=== PATIENT | male | born 1960 | race Caucasian/White ===

== ENCOUNTER 2018-08-30 08:38 | Emergency (ER) | payer BC, OTHER ==
[2018-08-30 08:54] VITALS: BP 139/81; PULSE 58; TEMP 98.1; BMI 35.7
[2018-08-30] MEDS ORDERED: COLCHICINE 0.6 MG TABLET (FP) PO ONE (09:09)
[2018-08-30] MEDS ORDERED: DEXAMETHASONE SOD PHOSPHATE 10 MG/1 ML VIAL IM ONE (09:13)
[2018-08-30] MEDS ORDERED: DEXAMETHASONE SOD PHOSPHATE 10 MG/1 ML VIAL ONE (09:20)
--- NOTE | 2018-08-30 09:20 | PDOC ---
History of Present Illness - General Chief Complaint: Pain, Acute Stated Complaint: PATIENT HERE FOR RT. KNEE PAIN X 1 DAY Time Seen by Provider: 08/30/18 08:58 History Source: Patient Exam Limitations: Clinical Condition - History of Present Illness Initial Comments: 08/30/18 09:15 Patient with history of hypertension, diabetes and gout present with complaint of sudden onset of right knee pain which has been worsening since yesterday. Patient reported he was laying down in the bed yesterday and started having throbbing right knee pain which was mild but has gotten worse. Patient denies any trauma or injury to knee. He hasn't been taking his gout medication for a long time because pharmacy stopped sending medication to his house. Denies fever , chills, calf pain, radiation of pain, numbness or tingling sensation. Denies any other symptoms Timing/Duration: 24 hours Past History - Past Medical History Allergies/Adverse Reactions: Allergies Allergy/AdvReac Type Severity Reaction Status Date / Time Pork/Porcine Containing Allergy Vomiting Verified 08/30/18 09:11 Products Home Medications: Ambulatory Orders Atorvastatin Ca [Lipitor] 10 mg PO HS #30 tablet 07/26/15 Lisinopril [Prinivil] 40 mg PO DAILY #30 tablet 07/26/15 [place]-3 Acid Ethyl Esters [Lovaza -] 1 gm PO BID #30 cap 07/26/15 Insulin (Levemir) [Levemir Vial] 20 units SQ ACHS 11/20/15 Oxycodone HCl/Acetaminophen [Percocet 5-325 mg Tablet] 1 - 2 tab PO Q6H PRN #10 tab MDD 8 11/20/15 Cephalexin Monohydrate [Keflex -] 500 mg PO BID 7 Days #14 capsule 08/30/18 Colchicine 0.6 mg PO DAILY #30 capsule 08/30/18 CVA: Yes (brain aneurysm, mild R residual) COPD: No Diabetes: Yes HTN: Yes - Surgical History Appendectomy: Yes Neurologic Surgery: Yes (vp of customer experience strategy shunt body rejected, coil in brain) - Immunization History Immunization Up to Date: Yes - Suicide/Smoking/Psychosocial Hx Smoking Status: No Smoking History: Never smoked Have you smoked in the past 12 months: Yes Number of Cigarettes Smoked Daily: 0 Hx Alcohol Use: No Drug/Substance Use Hx: No Substance Use Type: None Review of Systems - Review of Systems Able to Perform ROS?: Yes Is the patient limited Thai proficient: No Constitutional: No: Chills, Fever, Malaise HEENTM: No: Symptoms Reported Respiratory: No: Symptoms reported Cardiac (ROS): No: Symptoms Reported ABD/GI: No: Nausea, Vomiting : No: Symptoms Reported Musculoskeletal: Yes: See HPI, Joint Pain (right knee), Joint Swelling (right knee), Muscle Pain (anterior right knee pain). No: Muscle Weakness Integumentary: Yes: Erythema (anterior right knee) Neurological: No: Numbness, Paresthesia, Tingling All Other Systems: Reviewed and Negative *Physical Exam - Vital Signs Last Vital Signs Temp Pulse Resp BP Pulse Ox 98.1 F 58 L 18 139/81 98 08/30/18 08:50 08/30/18 08:50 08/30/18 08:50 08/30/18 08:50 08/30/18 08:50 - Physical Exam Comments: 08/30/18 09:21 GENERAL: Well developed, well nourished. Awake and alert. No acute distress. CARDIOVASCULAR: Regular rate and rhythm. No murmurs, rubs, or gallops. PULMONARY: No evidence of respiratory distress. MUSCULOSKELETAL : Moderate tenderness to anterior patella of right knee with mild swelling and erythema to anterior patella of right knee. No tenderness to medial, lateral or posterior right knee. Negative anterior-posterior drawer tests of right knee. No increased warmth to right knee. FROM of right knee with flexion and extension. no restricted knee movement. No bony deformities SKIN: Warm and dry. Normal capillary refill. Mild localized increased erythema to skin of anterior patella NEUROLOGICAL: Alert, awake, appropriate. No motor deficits in the lower extremities. Gait is normal without ataxia. PSYCHIATRIC: Cooperative. Good eye contact. Appropriate mood and affect. General Appearance: Yes: Nourished, Appropriately Dressed, Mild Distress ED Treatment Course - LABORATORY CBC & Chemistry Diagram: 08/30/18 09:17 - RADIOLOGY Radiology Studies Ordered: Category Date Time Status KNEE 3 POS-RIGHT [RAD] Stat Radiology 08/30/18 09:10 Ordered Medical Decision Making - Medical Decision Making 08/30/18 09:17 Patient with history of hypertension, diabetes and gout present with complaint of sudden onset of right knee pain which has been worsening since yesterday. Patient reported he was laying down in the bed yesterday and started having throbbing right knee pain which was mild but has gotten worse. Patient denies any trauma or injury to knee. He hasn't been taking his gout medication for a long time because pharmacy stopped sending medication to his house. Denies fever , chills, calf pain, radiation of pain, numbness or tingling sensation. Denies any other symptoms. Exam significant for moderate tenderness to anterior patella of right knee ordered erythema to skin of right knee. No tenderness to medial, lateral or posterior knee. No open wound or increased warmth to site. FROM of right knee with flexion and extension. no restricted knee movement Symptoms likely gout arthritis versus less likely infective right knee joints. CBC, uric acid and ESR lab ordered. X-ray of right knee ordered. Colchicine 1.2 mg by mouth and Decadron 10 mg IM given for knee pain and possible gout. Treat based on lab and imaging results 08/30/18 09:54 x-ray of right knee shows moderate arthritis changes. no joint effusion of x- ray. no acute process seen on x-ray. Uric acid level elevated c/w gout. CBC and ESR still pending 08/30/18 11:32 ESR elevated. CBC unremarkable. Patient stable for outpatient management on gout arthritis with orthopedics follow-up *DC/Admit/Observation/Transfer Diagnosis at time of Disposition: Gout, arthritis, Right anterior knee pain - Discharge Dispostion Disposition: HOME Condition at time of disposition: Stable Decision to Admit order: No - Prescriptions Prescriptions: Cephalexin Monohydrate [Keflex -] 500 mg PO BID 7 Days #14 capsule Colchicine 0.6 mg PO DAILY #30 capsule - Referrals Referrals: Bobby Lakhani MD [Primary Care Provider] - - Patient Instructions Printed Discharge Instructions: DI for Gout, Higher Vitamin C Intake Associated With Lower Risk of Gout Additional Instructions: Take prescribed medications daily as prescribed. Your x-rays shows arthritis in right knee. Follow-up with referred orthopedics - Post Discharge Activity Forms/Work/School Notes: Back to Work
[2018-08-30] MEDS ORDERED: COLCHICINE 0.6 MG TABLET (FP) ONE (09:21)
[2018-08-30 11:26] LABS: BASO % 0.8 % (0-2.0); EOS % 2.7 % (0-4.5); HEMATOCRIT 39.8 % (35.4-49); HEMOGLOBIN 13.9 GM/dL (11.7-16.9); LYMPH % 20.5 % (8-40); MEAN CELL VOLUME 88.5 fl (80-96); MEAN PLT VOLUME 8.8 fl (7.5-11.1); MONO % 6.9 % (3.8-10.2); NEUT % 69.1 % (42.8-82.8); PLATELET COUNT 204 K/MM3 (134-434); RDW 13.7 % (11.9-15.9); WHITE BLOOD COUNT 6.7 K/mm3 (4.0-10.0)
== END 2018-08-30 12:04 | disposition home or self-care (01) ==
LOC: JERFT 08:38
PROC: 3E0233Z Introduction of Anti-inflammatory into Muscle, Percutaneous Approach (ICD-10-PCS; principal; 2018-08-30)
DX: M10.9 Gout, unspecified (principal); M13.861 Other specified arthritis, right knee; I10 Essential (primary) hypertension; E11.9 Type 2 diabetes mellitus without complications; Z79.4 Long term (current) use of insulin
CPT/HCPCS: 36415; 73562-TC-RT-FY; 84550; 85025; 85651; 99281-25; J1100

== ENCOUNTER 2019-06-15 16:46 | Inpatient (IN) | payer BC, OTHER ==
[2019-06-15] MEDS ORDERED: ACETAMINOPHEN 500 MG TABLET (FP) PO ONE (17:22)
[2019-06-15] MEDS ORDERED: SODIUM CHLORIDE 0.9% 500 ML INFUS.BAG IV ONE (17:23)
--- NOTE | 2019-06-15 17:24 | PDOC ---
Rapid Medical Evaluation Time Seen by Provider: 06/15/19 17:17 Medical Evaluation: Allergies Allergy/AdvReac Type Severity Reaction Status Date / Time Pork/Porcine Containing Allergy Vomiting Verified 12/09/18 10:44 Products 06/15/19 17:18 CC: Bodyaches, cough Pt is a 58 y/o male who presents to the ED with complaint of bodyaches and cough for 2 days. Pt is complaining of having no energy, no appetite, + nausea. Has DM, CKI, h/o CVA, HTN. Brief exam: Generally ill appearing, non-toxic, no respiratory distress Orders: Tylenol, cxr, saline lock, fluids, labs To ED for further evaluation Discharge Disposition - Diagnosis Fever - Referrals - Patient Instructions - Post Discharge Activity
--- NOTE | 2019-06-15 17:40 | PDOC ---
History of Present Illness - General Chief Complaint: Blood Pressure Problem Stated Complaint: COLD SYMPTOMS Time Seen by Provider: 06/15/19 17:17 History Source: Patient Exam Limitations: No Limitations - History of Present Illness Initial Comments: 06/15/19 17:39 58yM w PMHx uncontrolled T2DM, CKD, CVA (R sided weakness), HTN presenting w 2d non productive cough, rich headache, body aches, nasal congestion, fevers, generalized weakness. Took cough meds without relief. Took all of his BP meds today. Does not take any of his prescribed DM meds d/t high cost. Denies vision changes, vomiting, chest pain, SOB, urinary/bowel mvmt changes. Past History - Past Medical History Allergies/Adverse Reactions: Allergies Allergy/AdvReac Type Severity Reaction Status Date / Time Pork/Porcine Containing Allergy Vomiting Verified 06/15/19 17:18 Products Home Medications: Ambulatory Orders Clonidine HCl 0.1 mg PO BID 06/15/19 Insulin Detemir [Levemir Flextouch] 10 unit SQ BID 06/15/19 Oseltamivir Phosphate [Tamiflu -] 75 mg PO BID #10 capsule 06/15/19 CVA: Yes (brain aneurysm, mild R residual) COPD: No Diabetes: Yes HTN: Yes - Surgical History Appendectomy: Yes Neurologic Surgery: Yes (hat brusher machine shunt body rejected, coil in brain) - Immunization History Immunization Up to Date: Yes - Psycho Social/Smoking Cessation Hx Smoking Status: No Smoking History: Unknown if ever smoked Have you smoked in the past 12 months: Yes Number of Cigarettes Smoked Daily: 0 Hx Alcohol Use: No Drug/Substance Use Hx: No Substance Use Type: None Review of Systems - Review of Systems Constitutional: Yes: Fever. No: Chills HEENTM: Yes: Nose Congestion. No: Blurred Vision, Recent change in vision, Nose Pain, Mouth Pain Respiratory: Yes: Cough. No: Shortness of Breath Cardiac (ROS): No: Chest Pain, Palpitations, Syncope ABD/GI: Yes: Nausea. No: Abdominal Distended, Constipated, Diarrhea, Vomiting : No: Burning, Dysuria, Hematuria Musculoskeletal: No: Back Pain, Joint Pain Integumentary: No: Bruising, Flushing Neurological: Yes: Headache. No: Seizure, Tingling Psychiatric: No: Anxiety, Depression, Stressors Endocrine: No: Excessive Sweating, Flushing, Intolerance to Cold, Intolerance to Heat Hematologic/Lymphatic: No: Anemia, Blood Clots *Physical Exam - Vital Signs Last Vital Signs Temp Pulse Resp BP Pulse Ox 100.4 F H 116 H 22 H 203/124 H 99 06/15/19 17:21 06/15/19 17:21 06/15/19 17:21 06/15/19 17:21 06/15/19 17:21 - Physical Exam General Appearance: Yes: Nourished, Appropriately Dressed, Mild Distress HEENT: positive: EOMI, ROB, Normal Voice, Hearing Grossly Normal. negative: Scleral Icterus (R), Scleral Icterus (L) Respiratory/Chest: positive: Lungs Clear, Normal Breath Sounds, Rapid RR. negative: Chest Tender, Respiratory Distress, Crackles, Rales, Rhonchi, Stridor , Wheezing Cardiovascular: positive: Regular Rhythm, S1, S2, Tachycardia. negative: Edema , Murmur Extremity: positive: Normal Capillary Refill. negative: Pedal Edema Integumentary: positive: Normal Color, Warm Neurologic: positive: supervisor laboratory II-XII NML intact, Fully Oriented, Alert, Normal Mood/ Affect, Normal Response, Motor Strength 5/5, Respond to painful stimul, Responsive. negative: Sensory Deficit, Confused, Disoriented ED Treatment Course - LABORATORY CBC & Chemistry Diagram: 06/15/19 17:32 06/15/19 17:32 Medical Decision Making - Medical Decision Making 06/15/19 18:[address] --- 58yM w PMHx uncontrolled T2DM, CKD, CVA (R sided weakness), HTN presenting w 2d non productive cough, rich headache, body aches, nasal congestion, fevers, generalized weakness d/t influenza B. Low concern for PNA (clear lung sounds) vs DKA (BG 106) vs intracranial bleed vs ACS (no chest pain/SOB) Has hypokalemia K 3.0 Given tylenol, zofran, 40 KCl, 0.5L NS, tamiflu Anticipate DC home w tamiflu prescription - pending head CT, CXR, UA Signed off to night team Discharge - Discharge Information Problems reviewed: Yes Clinical Impression/Diagnosis: Influenza B Condition: Improved Disposition: HOME - Additional Discharge Information Prescriptions: Oseltamivir Phosphate [Tamiflu -] 75 mg PO BID #10 capsule - Follow up/Referral Referrals: Bobby Lakhani MD [Primary Care Provider] - - Patient Discharge Instructions Patient Printed Discharge Instructions: DI for Influenza -- Adult Additional Instructions: You have the flu Take the prescribed Tamiflu as directed. Drink lots of water. Take tylenol if you have fever Come back to the ED if you are vomiting, chest pain, trouble breathing. - Post Discharge Activity
[2019-06-15 17:51] LABS: BASO % 0.7 % (0-2.0); EOS % 0.1 % (0-4.5); HEMOGLOBIN 14.8 GM/dL (11.7-16.9); LYMPH % 10.2 % (8-40); MCH 29.1 pg (25.7-33.7); MCHC 34.4 g/dl (32.0-35.9); MEAN CELL VOLUME 84.5 fl (80-96); MEAN PLT VOLUME 8.5 fl (7.5-11.1); MONO % 11.9 % (3.8-10.2); NEUT % 77.1 % (42.8-82.8); PLATELET COUNT 213 K/MM3 (134-434); RBC 5.09 M/mm3 (4.00-5.60); RDW 14.8 % (11.9-15.9); WHITE BLOOD COUNT 7.4 K/mm3 (4.0-10.0)
[2019-06-15] MEDS ORDERED: ONDANSETRON 4 MG/2 ML VIAL IVPUSH ONE (18:02)
[2019-06-15 18:12] LABS: ALBUMIN 2.5 g/dl (3.4-5.0); BILIRUBIN,TOTAL 0.8 mg/dL (0.2-1); CALCIUM 8.1 mg/dL (8.5-10.1)
[2019-06-15] MEDS ORDERED: POTASSIUM CHLORIDE ORAL LIQUID 20 MEQ/15 ML PO ONE (18:23)
[2019-06-15] MEDS ORDERED: FAMOTIDINE 20 MG/50 ML IVPB 20 MG/50 ML MG IVPB ONE ×2 (18:41→19:37)
[2019-06-15] MEDS ORDERED: OSELTAMIVIR PHOSPHATE 75 MG CAPSULE PO ONE (18:57)
--- NOTE | 2019-06-15 19:07 | PDOC ---
Documentation entered by Waldemar Banda SCRIBE, acting as scribe for Kristel Chawla DO. Kristel Chawla DO: This documentation has been prepared by the Solo mccoy Daniel, SCRIBE, under my direction and personally reviewed by me in its entirety. I confirm that the documentation accurately reflects all work, treatment, procedures, and medical decision making performed by me. Attending Attestation - Resident Resident Name: Arturo Jackson - ED Attending Attestation I have performed the following: I have examined & evaluated the patient, The case was reviewed & discussed with the resident, I agree w/resident's findings & plan, Exceptions are as noted - HPI HPI: 06/15/19 18:10 The patient is a 58 year old male with a past medical history of diabetes, stroke (right sided weakness), and HTN here today for evaluation of cough and body aches. The patient reports that he has had 2 days of non productive cough, nasal congestion, general weakness, body aches, nausea, and subjective fevers. He reports that he took some cough medication with minimal relief. Patient denies lightheadedness. Denies chills. Denies chest pain, shortness of breath. Denies vomiting, diarrhea, abdominal pain. Allergies: pork PCP: Bobby Lakhani - Physicial Exam PE: 06/15/19 18:10 Constitutional: +morbidly obese. +warm to touch. Awake, alert, oriented. No acute distress. Head: Normocephalic. Atraumatic Eyes: PERRL. EOMI. Conjunctivae are not pale. ENT: +clear discharge from nares. Mucous membranes are moist and intact. Posterior pharynx without exudates or erythema. Uvula midline. Neck: Supple. Full ROM. No lymphadenopathy. Cardiovascular: +tachycardic. Regular rhythm. S1, S2 regular. Distal pulses are 2+ and symmetric. Pulmonary/Chest: +mildly tachypneic. No evidence of respiratory distress. Clear to auscultation bilaterally No wheezing, rales or rhonchi. Abdominal: +epigastric tenderness. Soft and non-distended. No rebound, guarding or rigidity. No organomegaly. No palpable masses. Good bowel sounds. Back: No CVA tenderness. Musculoskeletal: No edema. No cyanosis. No clubbing. Full range of motion in all extremities. No calf tenderness. Radial/pedal pulses are intact and 2+ bilaterally Skin: Skin is warm and dry. No petechiae. No purpura. Neurological: Alert and oriented to person, place, and time. Cranial nerves II -XII are grossly intact. Normal speech. Strength is grossly symmetric. No sensory deficits. Psychiatric: Good eye contact. Normal interaction, affect and behavior. - Medical Decision Making 06/15/19 19:04 a/p: 58yo male with hx of dm and htn noncomplaint with meds due to cost with elevated bp, tachy, fevers, and body aches x 2 days -pt states noncomplaint due to cost -only taking 4 of his 12 meds -pt denies cp -has been coughing, rhinorrhea, sore throat -pt did not get the flu vaccine today -will send labs, ekg, cxr, flu, trop -will monitor and reassess 06/15/19 19:05 pt is flu b+ trop 0.09 pt with elevated bp and trop spill, concerning for hypertensive emergency pt also with elie on ckd 06/15/19 19:[address] without acute findings pt agreeable to stay for further eval 06/15/19 19:27 cxr clear, cardiomegaly 06/15/19 20:01 pt will need to be admitted abnl ekg elevated trop elie on ckd end organ damage protein in the urine 06/15/19 20:32 resident discussed the case with the pmd who accepts pt to service Heart Score/ECG Review - ECG Intrepretation Comment:: 06/15/19 20:00 sinus at 94, nl axis, nl interval, q waves septally which are age indeterminate , q waves III and avf, abnl ekg
--- NOTE | 2019-06-15 19:08 | PDOC ---
*Physical Exam - Vital Signs Last Vital Signs Temp Pulse Resp BP Pulse Ox 100.4 F H 116 H 22 H 203/124 H 99 06/15/19 17:21 06/15/19 17:21 06/15/19 17:21 06/15/19 17:21 06/15/19 17:21 - Physical Exam General Appearance: Yes: Nourished, Mild Distress ED Treatment Course - LABORATORY CBC & Chemistry Diagram: 06/15/19 17:32 06/15/19 17:32 - ADDITIONAL ORDERS Additional order review: Laboratory Results 06/15/19 06/15/19 17:59 17:32 Sodium 143 Potassium 3.0 L Chloride 111 H Carbon Dioxide 24 Anion Gap 8 BUN 22.0 H Creatinine 3.0 H Est GFR (CKD-EPI)AfAm 25.72 Est GFR (CKD-EPI)NonAf 22.19 POC Glucometer 106 Random Glucose 93 Calcium 8.1 L Total Bilirubin 0.8 AST 44 H ALT 31 Alkaline Phosphatase 119 H Troponin I 0.09 H Total Protein 6.0 L Albumin 2.5 L 06/15/19 06/15/19 17:59 17:32 RBC 5.09 MCV 84.5 MCHC 34.4 RDW 14.8 D MPV 8.5 Neutrophils % 77.1 Lymphocytes % 10.2 D Monocytes % 11.9 H Eosinophils % 0.1 D Basophils % 0.7 POC Glucometer 106 - Medications Given in the ED: ED Medications Discontinued Medications Generic Name Dose Route Start Last Admin Trade Name Freq PRN Reason Stop Dose Admin Acetaminophen 1,000 mg 06/15/19 17:22 06/15/19 18:24 Tylenol - PO 06/15/19 17:23 1,000 mg ONCE ONE Administration Sodium Chloride 500 ml 06/15/19 17:23 06/15/19 18:24 Normal Saline - IV 06/15/19 17:24 500 ml ONCE ONE Administration Medical Decision Making - Medical Decision Making 06/15/19 19:05 Signed out to me by Dr. Jackson. 58M with PMH DM, CKD, CVA, HTN presenting with flu-like symptoms including myalgia, weakness, fever. VS notable for fever to 100.4F, tachy to 116, BP to 203/124, RR 22. Labs notable for: - flu B+, starting on Tamiflu - K 3.0, will replete - Cr 3.0, up from 2.7, acute on chronic kidney injury - trop 0.09, concerning for hypertensive emergency - Albumin 2.5 - Ca 8.1, corrected 9.3 - UA 4+ protein, 3+ blood ECG notable for NSR with HR 94, QRS 84, QTc 447, mild TWI in III, no other significant ischemic changes 06/15/19 20:21 Discussed case with constanza Cedeno for tele admit to her service, requests consults to Nikole Rios, and Michaela and trop trend. Discharge - Discharge Information Problems reviewed: Yes Clinical Impression/Diagnosis: Influenza B, Hypertensive emergency Condition: Improved Disposition: HOME - Admission Yes - Additional Discharge Information - Follow up/Referral - Patient Discharge Instructions - Post Discharge Activity
[2019-06-15] MEDS ORDERED: OSELTAMIVIR PHOSPHATE 75 MG CAPSULE ONE (19:36)
[2019-06-15] MEDS ORDERED: POTASSIUM CHLORIDE ORAL LIQUID 20 MEQ/15 ML ONE (19:37)
[2019-06-15] MEDS ORDERED: ONDANSETRON 4 MG/2 ML VIAL ONE (19:37)
[2019-06-15 19:50] LABS: EPI CELLS 3.3 /HPF (0-5/HPF); HYALINE CASTS 9 /lpf (0-8); PH,URINE 6.5 (5.0-8.0); URINE APPEARANCE CLEAR; URINE BILIRUBIN NEGATIVE (NEGATIVE); URINE COLOR YELLOW; URINE GLUCOSE (UA) TRACE (NEGATIVE); URINE KETONE NEGATIVE (NEGATIVE); URINE LEUK ESTERASE NEGATIVE (NEGATIVE); URINE NITRITE NEGATIVE (NEGATIVE); URINE PROTEIN 4+ (NEGATIVE); URINE RBC 3 /hpf (0-4); URINE WBC 1 /hpf (0-5)
[2019-06-15 19:57] LABS: COCAINE, UR NEGATIVE ng/ml (CUTOFF=300); METHADONE, UR NEGATIVE ng/ml (CUTOFF=300); OPIATES, URI NEGATIVE ng/ml (CUTOFF=300); PHENCYCLIDINE,URINE NEGATIVE ng/ml (CUTOFF=25); URINE AMPHETAMINES NEGATIVE ng/ml (CUTOFF=500); URINE BARBITURATES NEGATIVE ng/ml (CUTOFF=200); URINE BENZODIAZEPINES NEGATIVE ng/ml (CUTOFF=200)
[2019-06-16] MEDS ORDERED: cloNIDine HCL 0.1 MG TABLET ONE (09:12)
[2019-06-16 09:19] LABS: BASO % 0.6 % (0-2.0); HEMATOCRIT 41.1 % (35.4-49); HEMOGLOBIN 14.2 GM/dL (11.7-16.9); LYMPH % 14.6 % (8-40); MCH 29.3 pg (25.7-33.7); MCHC 34.6 g/dl (32.0-35.9); MEAN CELL VOLUME 84.5 fl (80-96); MEAN PLT VOLUME 7.9 fl (7.5-11.1); MONO % 13.6 % (3.8-10.2); NEUT % 70.2 % (42.8-82.8); PLATELET COUNT 194 K/MM3 (134-434); RBC 4.86 M/mm3 (4.00-5.60); RDW 14.9 % (11.9-15.9); WHITE BLOOD COUNT 5.5 K/mm3 (4.0-10.0)
--- NOTE | 2019-06-16 09:35 | CON.CARD ---
Consult Consult Specialty:: Cardiology Referred by:: Bobby Nunes MD Reason for Consultation:: Demand ischemia - History of Present Illness Chief Complaint: Flu History of Present Illness: 58 yo male with a hx of HTN, hyperlipidemia, DM -> on insulin, CVA from a ruptured aneurysm post with shunt placement consequent infection requiring replacement, eventual coiling of the aneurysm, residual left-sided weakness, CKD , here with body aches, non productive cough, nasal congestion, general weakness , nausea, and subjective fevers. He reports that he took some cough medication with minimal relief, found with influenza B, also BP has been high. He denies CP , SOB, palpitations, dizziness, true syncope, orthopnea, PND or LE edema. He doesn't exercise at baseline because of weakness. 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 ELEMENT [employer]KER: Yes: Other (s/p rutptured brain anuerysm with residual left sided weakness) Cardio/Vascular: Yes: HTN, Hyperlipdemia Renal/: Yes: Renal Inusuff Endocrine: Yes: Diabetes Mellitus (on insulin) - Past Surgical History Past Surgical History: Yes: Appendectomy - Alcohol/Substance Use Hx Alcohol Use: No History of Substance Use: reports: None - Smoking History Smoking history: Unknown if ever smoked Have you smoked in the past 12 months: Yes Aproximately how many cigarettes per day: 0 - Social History Usual Living Arrangement: Other (4 children, grown) Home Medications - Allergies Allergies/Adverse Reactions: Allergies Allergy/AdvReac Type Severity Reaction Status Date / Time Pork/Porcine Containing Allergy Vomiting Verified 06/15/19 17:18 Products - Home Medications Home Medications: Ambulatory Orders Clonidine HCl 0.1 mg PO BID 06/15/19 Insulin Detemir [Levemir Flextouch] 10 unit SQ BID 06/15/19 Oseltamivir Phosphate [Tamiflu -] 75 mg PO BID #10 capsule 06/15/19 Review of Systems - Review of Systems Constitutional: reports: Fever, Malaise Musculoskeletal: reports: Muscle Pain Vital Signs: Vital Signs Temperature 99 F 06/16/19 08:30 Pulse Rate 94 H 06/16/19 08:30 Respiratory Rate 20 06/16/19 08:30 Blood Pressure 176/108 H 06/16/19 08:30 O2 Sat by Pulse Oximetry (%) 98 06/16/19 08:30 Constitutional: Yes: No Distress, Calm Neck: Yes: Supple Respiratory: Yes: Regular, CTA Bilaterally Gastrointestinal: Yes: Normal Bowel Sounds, Soft Cardiovascular: Yes: Regular Rate and Rhythm JVD: No Carotid Bruit: No Heart Sounds: Yes: S1, S2 Murmur: Yes: Systolic Murmur, Grade 1 Edema: No Neurological: Yes: Pre-Existing Deficit - Other Data Labs, Other Data: CBC, BMP 06/16/19 09:11 Troponin, BNP 06/15/19 06/15/19 06/16/19 17:32 21:07 00:26 Troponin I 0.09 H 0.12 H 0.11 H Troponin, BNP 06/15/19 06/15/19 06/16/19 17:32 21:07 00:26 Troponin I 0.09 H 0.12 H 0.11 H Imaging - Results Chest X-ray: Report Reviewed (NAD) Cat Scan: Report Reviewed (HCT: No acute events) Problem List - Problems (1) Demand ischemia Code(s): I24.8 - OTHER FORMS OF ACUTE ISCHEMIC HEART DISEASE (2) Fever Code(s): R50.9 - FEVER, UNSPECIFIED Qualifiers: Fever type: unspecified Qualified Code(s): R50.9 - Fever, unspecified (3) Hypertensive emergency Code(s): I16.1 - HYPERTENSIVE EMERGENCY (4) Influenza B Code(s): J10.1 - FLU DUE TO OTH IDENT INFLUENZA VIRUS W OTH RESP MANIFEST (5) CVA (cerebrovascular accident due to intracerebral hemorrhage) Code(s): I61.9 - NONTRAUMATIC INTRACEREBRAL HEMORRHAGE, UNSPECIFIED (6) Diabetes Code(s): E11.9 - TYPE 2 DIABETES MELLITUS WITHOUT COMPLICATIONS Qualifiers: Diabetes mellitus type: type 2 Diabetes mellitus prison insulin use: with prison use Diabetes mellitus complication status: with kidney complications Diabetes mellitus complication detail: with nephropathy Qualified Code(s): E11.21 - Type 2 diabetes mellitus with diabetic nephropathy; Z79.4 - MCC (current) use of insulin (7) Hyperlipemia Code(s): E78.5 - HYPERLIPIDEMIA, UNSPECIFIED Qualifiers: Hyperlipidemia type: pure hypercholesterolemia Qualified Code(s): E78.00 - Pure hypercholesterolemia, unspecified; E78.0 - Pure hypercholesterolemia Assessment/Plan 07/31/2015 Normal biventricular size and fxn, tr TR 1. Influenza B 2. Acute on CKD with proteinuria 3. Hypertensive urgency 4. Demand ischemia 5. Medication noncompliance 6. Cerebral aneurysm post stroke, coiling 7. Hyperlipidemia 8. Type 2 DM P:1. Troponins are downtrending, replete K as you are, monitor renal function 2. F/u echocardiogram to reassess LV and valvular function 3. Resume carvedilol 6.25 bid, lisinopril held pending renal fxn stabilization, resume Lipitor 10 qd 4. Emphasize importance of medication and diet compliance 5. Course of Tamiflu 6. Thank you for consultative opportunity
[2019-06-16 09:49] LABS: ALBUMIN 2.4 g/dl (3.4-5.0); BILIRUBIN,TOTAL 0.8 mg/dL (0.2-1); BLOOD UREA NITROGEN 19.1 mg/dL (7-18); CALCIUM 7.9 mg/dL (8.5-10.1); CREATININE 2.8 mg/dL (0.55-1.3); POTASSIUM 3.1 mmol/L (3.5-5.1); TOT PROT 5.7 g/dl (6.4-8.2)
[2019-06-16] MEDS ORDERED: INSULIN (LEVEMIR) 100 UNITS/ML UNITS SQ SCH (10:00)
[2019-06-16] MEDS ORDERED: cloNIDine HCL 0.1 MG TABLET PO SCH ×2 (10:00→14:00)
[2019-06-16] MEDS ORDERED: CARVEDILOL 3.125 MG TABLET (FP) ONE ×2 (10:32→11:20)
[2019-06-16] MEDS: CARVEDILOL 6.25 MG TABLET (FP) PO SCH ×2 (11:00→22:54)
--- NOTE | 2019-06-16 13:36 | CONSULT ---
Consult - text type - Consultation Consultation Note: Renal consult for CKD This is a 58 year old gentleman with history of CKD stage 4 (baseline Cr ~2.6), hemorrhagic CVA, hypertension, insulin dependent DM who presents from home with complaints of body aches, fevers, and generalized weakness and found to have Cr of 3 on presentation with elevated blood pressures. Pt reports that he could not sleep for the last 3 days because of cough. Denies any chest pain or shortness of breath. No N/V/D but has had anorexia. No flank pain, dysuria, frequency. Making urine. He does report headache. PMhx: as above Allergies: Prok/Porcine Family Hx: NC Social Hx: No T/A/D ROS: as per HPI, all other pertinent ros negative Home Medications Medication Instructions Recorded Clonidine HCl 0.1 mg PO BID 06/15/19 Insulin Detemir [Levemir Flextouch] 10 unit SQ BID 06/15/19 Oseltamivir Phosphate [Tamiflu -] 75 mg PO BID #10 capsule 06/15/19 Vital Signs Temperature 99 F 06/16/19 08:30 Pulse Rate 94 H 06/16/19 08:30 Respiratory Rate 20 06/16/19 08:30 Blood Pressure 176/108 H 06/16/19 08:30 O2 Sat by Pulse Oximetry (%) 98 06/16/19 08:30 Intake & Output 06/13/19 06/14/19 06/15/19 06/16/19 23:59 23:59 23:59 23:59 Weight 92.986 kg NAD awake and alert neck supple no JVD RRR, no M/R CTA, no wheeze or rales soft NT/ND, Obese no LE edema, clubbing or cyanosis CBC, BMP 06/16/19 09:11 06/16/19 09:11 Current Medications Atorvastatin Calcium (Lipitor -) 10 mg PO HS TED Carvedilol (Coreg -) 6.25 mg PO BID [facility] Last Admin: 06/16/19 11:00 Dose: 6.25 mg Insulin Detemir (Levemir Vial) 10 units SQ BID [facility] Stop: 06/20/19 10:00 Last Admin: 06/16/19 11:00 Dose: 10 unit Oseltamivir Phosphate (Tamiflu -) 75 mg PO BID [facility] Stop: 02/05/20 09:59 58 year old gentleman with history of CKD stage 4 (baseline Cr ~2.6), hemorrhagic CVA, hypertension, insulin dependent DM who presents from home with complaints of body aches, fevers, and generalized weakness and found to have Cr of 3 on presentation with elevated blood pressures. 1. Uncontrolled hypertension 2. 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 Acute influenza infection 4. Hypokalemia 5. DM on insulin Renal function slightly worse then baseline however there is no overt hyperkalemia, acidosis or fluid overload. Holding ACEi for now Mange BP with Coreg, Clonidine Q8h, and Amlodipine 5mg Course of Tamiflu as per primary team s/p KCL supplementation continue insulin for DM Thank you Fidencio Bradley DO
[2019-06-16] MEDS ORDERED: amLODIPine BESYLATE 5 MG TABLET (FP) PO SCH (13:45)
[2019-06-16] MEDS ORDERED: amLODIPine BESYLATE 10 MG TABLET (FP) PO SCH (13:47)
[2019-06-16] MEDS ORDERED: amLODIPine BESYLATE 5 MG TABLET (FP) ONE (15:05)
[2019-06-16] MEDS: amLODIPine BESYLATE 10 MG TABLET (FP) PO SCH (15:06)
[2019-06-16] MEDS ORDERED: POTASSIUM CHLORIDE TABS 20 MEQ TABLET.ER (FP) PO ONE (15:09)
--- NOTE | 2019-06-16 15:10 | EKG ---
Test Reason : Blood Pressure : / mmHG Vent. Rate : 094 BPM Atrial Rate : 094 BPM P-R Int : 174 ms QRS Dur : 084 ms QT Int : 358 ms P-R-T Axes : 036 001 047 degrees QTc Int : 447 ms NORMAL SINUS RHYTHM CANNOT RULE OUT INFERIOR INFARCT , AGE UNDETERMINED CANNOT RULE OUT SEPTAL INFARCT , AGE UNDETERMINED NONSPECIFIC ST ABNORMALITY ABNORMAL ECG Confirmed by GUNNER MCCORD MD ([id number]) on 06/16/2019 3:10:23 PM Referred By: Confirmed By:GUNNER MCCORD MD
--- NOTE | 2019-06-16 15:25 | PN ---
Progress Note, Physician Chief Complaint: Pt resting comfortably No new complaints today,BP is coming down Afebrile Pt is on Tamiflu for influenza Cardiology and renal consult appreciated - Current Medication List Current Medications: Active Medications Amlodipine Besylate (Norvasc -) 10 mg PO DAILY [facility] Last Admin: 06/16/19 15:06 Dose: 10 mg Atorvastatin Calcium (Lipitor -) 10 mg PO [facility] Carvedilol (Coreg -) 6.25 mg PO BID [facility] Last Admin: 06/16/19 11:00 Dose: 6.25 mg Clonidine (Catapres -) 0.1 mg PO BID [facility] Insulin Detemir (Levemir Vial) 10 units SQ BID [facility] Stop: 06/20/19 10:00 Last Admin: 06/16/19 11:00 Dose: 10 unit Oseltamivir Phosphate (Tamiflu -) 30 mg PO BID [facility] Stop: 06/21/19 14:14 Potassium Chloride (K-Dur -) 40 meq PO ONCE ONE Stop: 06/16/19 15:10 - Objective Vital Signs: Vital Signs Temperature 98.1 F 06/16/19 15:00 Pulse Rate 79 06/16/19 15:00 Respiratory Rate 06/16/19 15:00 Blood Pressure 155/100 06/16/19 15:00 O2 Sat by Pulse Oximetry (%) 98 06/16/19 08:30 Constitutional: Yes: No Distress Eyes: Yes: Conjunctiva Clear HENT: Yes: Atraumatic Neck: Yes: Supple Cardiovascular: Yes: Regular Rate and Rhythm Respiratory: Yes: Regular, CTA Bilaterally Gastrointestinal: Yes: WNL Musculoskeletal: Yes: WNL Extremities: Yes: WNL Edema: No Peripheral Pulses WNL: Yes Neurological: Yes: WNL, Alert, Oriented ...Motor Strength: WNL Psychiatric: Yes: WNL Labs: CBC, BMP 06/16/19 09:11 06/16/19 09:11 - ....Imaging Chest X-ray: Report Reviewed Cat Scan: Report Reviewed EKG: Report Reviewed Assessment/Plan Infleunza B Hypertensive Emergency Demand Ischemia acute on Chronic CKD fever Cerebral aneurysm,S/p cva DM Hypercholestrolemia Hypokalemia PLAN Continue Tamiflu Monitor LABS And BP Cardiology and renal F/U K suppliment
--- NOTE | 2019-06-16 15:40 | ECHO ---
Name: RAMIRO ROBERTA Exam:Adult Echocardiogram Study Date: 06/16/2019 02:19 PM Age: 58 yrs Reason For Study: HTN Height: 65 in Weight: 205 lb BSA: 2.0 m2 MMode/2D Measurements & Calculations RVDd: 2.4 cm Ao root diam: 3.3 cm IVSd: 1.2 cm LA dimension: 4.4 cm LVIDd: 5.3 cm ACS: 1.6 cm LVIDs: 3.7 cm LVPWd: 1.2 cm EDV(Teich): 133.1 ml EPSS: 0.96 cm ESV(Teich): 59.1 ml LVOT diam: 2.0 cm LAV (MOD-bp): 45.0 ml TAPSE: 1.3 cm RV S Uriel: 11.4 cm/sec Doppler Measurements & Calculations MV E max uriel: 42.4 cm/sec Ao V2 max: 125.7 cm/sec MV A max uriel: 73.1 cm/sec Ao max P.3 mmHg MV E/A: 0.58 Ao V2 mean: 91.5 cm/sec MV dec time: 0.24 sec Ao mean P.7 mmHg Ao V2 VTI: 20.0 cm DAFNE(I,D): 2.2 cm2 DAFNE(V,D): 2.1 cm2 LV V1 max P.8 mmHg MR max uriel: 453.4 cm/sec LV V1 mean P.3 mmHg MR max P.2 mmHg LV V1 max: 83.9 cm/sec LV V1 mean: 51.6 cm/sec LV V1 VTI: 14.0 cm SV(LVOT): 43.9 ml TR max uriel: 228.2 cm/sec TR max P.1 mmHg PA V2 max: 88.2 cm/sec Med Peak E' Uriel: 3.0 cm/sec PA max P.1 mmHg Med E/e': 14.0 Lat Peak E' Uriel: 5.2 cm/sec Lat E/e': 8.2 Left Ventricle There is mild concentric left ventricular hypertrophy. Left ventricular systolic function is normal. Ejection Fraction = 55-60%. The transmitral spectral Doppler flow pattern is suggestive of impaired LV relaxat ion. Right Ventricle The right ventricle is normal in size and function. Atria The left atrium is moderately dilated. Right atrial size is normal. Mitral Valve The mitral valve is normal in structure and function. There is no mitral valve stenosis. There is mil d mitral regurgitation. Tricuspid Valve The tricuspid valve is normal in structure and function. There is mild tricuspid regurgitation. Aortic Valve The aortic valve opens well. No hemodynamically significant valvular aortic stenosis. No aortic regur gitation is present. Pulmonic Valve The pulmonic valve is not well seen, but is grossly normal. There is no pulmonic valvular stenosis. Great Vessels The aortic root is normal size. Pericardium/Pleura There is no pericardial effusion. Interpretation Summary There is mild concentric left ventricular hypertrophy. Left ventricular systolic function is normal. Ejection Fraction = 55-60%. The transmitral spectral Doppler flow pattern is suggestive of impaired LV relaxation. The right ventricle is normal in size and function. The left atrium is moderately dilated. There is mild mitral regurgitation. There is mild tricuspid regurgitation. The aortic root is normal size. There is no pericardial effusion. MD Bailey *Alin 06/16/2019 03:39 PM
[2019-06-16] MEDS ORDERED: hydrALAZINE HCL 20 MG/ML VIAL IVPUSH PRN (16:31)
[2019-06-16 16:39] VITALS: BMI 34.4
--- NOTE | 2019-06-16 18:00 | HP ---
DATE OF ADMISSION: 06/15/2019 DATE OF DICTATION: 06/16/2019 HISTORY OF PRESENT ILLNESS: A 58-year-old male with past medical history of hypertension, hyperlipidemia, diabetes on insulin. 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 As per the patient he took some cough medicine but with minimal relief. Patient came to the emergency room. Patient had flu test done in the emergency and it was positive for influenza B, and BP also was found high in the emergency room. Denies shortness of breath, palpitations, chest pain, dizziness, orthopnea, lower extremity edema. PAST MEDICAL HISTORY: Regarding the past medical history, history of brain aneurysm with status post ruptured brain aneurysm with shunt placement and staphylococcus infection, eventual coiling of the aneurysm with residual left-sided weakness, history of hypertension, hyperlipidemia, diabetes, chronic renal disease. PAST SURGICAL HISTORY: Appendectomy. SOCIAL HISTORY: No alcohol. Not smoker. Living with the family. ALLERGIES: To pork and pork-containing products. MEDICATION: Patient is takin. Clonidine 1 mg p.o. 2 times a day. 2. Insulin 10 units subcutaneous b.i.d. 3. Tamiflu. REVIEW OF SYSTEMS: Constitutional: Patient reports fever, malaise, tired. Respiratory: Cough. Cardiovascular: History of hypertension. Musculoskeletal: Reports malaise and pain. Renal: History of CKD. Urine output good. PHYSICAL EXAMINATION: Vital signs: On examination of the patient in the emergency room, temperature 100.4, pulse rate 116, blood pressure 203/124, respirations were 22, oxygen saturation was 92. Now the blood pressure was 184/107, temperature 98.1, blood pressure 155/100, respirations 20, saturation 98. Neck: Supple, no JVD. Chest: Clear. Equal bilateral air entry. Cardiovascular: First and second sounds normal. Gastrointestinal: Normal bowel sounds. Abdomen: Soft, no tenderness. Extremities: No pedal edema. Neurological: Patient alert, oriented x3. Left-sided residual weakness present. LABORATORY: Patient's lab, CBC: 5.5, hemoglobin 14.2, hematocrit 41.4, platelets 194. Chemistries: Sodium 145, potassium 3.1, chloride 114, bicarbonate 25, BUN 19.1, creatinine 2.8, glucose 86, calcium 7.9, AST 70, ALT 39, alkaline phosphatase 112. Troponin 1st set was 0.09, 2nd set 0.12, and 3rd set 0.11. Urine shows protein 4+, blood 3+. Toxicology negative. Influenza test shows positive influenza B. Chest x-ray: No acute infiltrate. Head CT: No acute intracranial pathology. EKG shows normal sinus rhythm, cannot rule out inferior infarct, nonspecific ST abnormality. Patient was given in the emergency room Tylenol, Zofran, carvedilol, clonidine, Tamiflu, famotidine, and potassium. Patient admitted on the floor with admitting diagnosis of influenza type B, hypertensive emergency, acute on chronic kidney disease, demand ischemia status post CVA, diabetes, hyperlipidemia, fever, type 2 diabetes. Cardiology and renal consult done. PLAN: To continue Tamiflu, monitor the labs. As for the cardiology, echocardiogram ordered. Carvedilol 6.25 mg p.o. b.i.d. added on hold. Lipitor 10 mg daily. Emphasized the importance of medication and diet compliance. Continue Tamiflu. Will monitor electrolytes and blood pressure. Patient stable on the floor. BARRIE FORD M.D. [id number]
[2019-06-16] MEDS: OSELTAMIVIR PHOSPHATE 30 MG CAPSULE PO SCH ×2 (18:59→22:59)
--- NOTE | 2019-06-16 19:13 | CONSULT ---
Consult Consult Specialty:: endocrine Referred by:: medical insurance claims specialist Reason for Consultation:: dmt2 - History of Present Illness Chief Complaint: dmt2 History of Present Illness: 58yM w PMHx uncontrolled T2DM, CKD, CVA (R sided weakness), HTN presenting w 2d non productive cough, rich headache, body aches, nasal congestion, fevers, generalized weakness. Does not take any of his prescribed DM meds d/t high cost. Denies vision changes, vomiting, chest pain, SOB, urinary/bowel mvmt changes. 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 (s/p rutptured brain anuerysm with residual left sided weakness) Cardio/Vascular: Yes: HTN, Hyperlipdemia Renal/: Yes: Renal Inusuff Endocrine: Yes: Diabetes Mellitus (on insulin) - Past Surgical History Past Surgical History: Yes: Appendectomy - Alcohol/Substance Use Hx Alcohol Use: No History of Substance Use: reports: None - Smoking History Smoking history: Unknown if ever smoked Have you smoked in the past 12 months: Yes Aproximately how many cigarettes per day: 0 - Social History Usual Living Arrangement: Other (4 children, grown) Home Medications - Allergies Allergies/Adverse Reactions: Allergies Allergy/AdvReac Type Severity Reaction Status Date / Time Pork/Porcine Containing Allergy Vomiting Verified 06/15/19 17:18 Products - Home Medications Home Medications: Ambulatory Orders Clonidine HCl 0.1 mg PO BID 06/15/19 Insulin Detemir [Levemir Flextouch] 10 unit SQ BID 06/15/19 Oseltamivir Phosphate [Tamiflu -] 75 mg PO BID #10 capsule 06/15/19 Review of Systems - Review of Systems Constitutional: reports: Lethargy, Loss of Appetite Eyes: reports: Blurred Vision HENT: reports: No Symptoms Neck: reports: No Symptoms Cardiovascular: reports: Shortness of Breath Respiratory: reports: Exercise Intolerance, SOB, SOB on Exertion Gastrointestinal: reports: Constipation Genitourinary: reports: No Symptoms Breasts: reports: No Symptoms Reported Musculoskeletal: reports: Joint Pain, Joint Swelling, Muscle Cramps Integumentary: reports: No Symptoms Neurological: reports: Numbness, Weakness Physical Exam Vital Signs: Vital Signs Temperature 98.6 F 06/16/19 18:00 Pulse Rate 78 06/16/19 18:00 Respiratory Rate 17 06/16/19 18:00 Blood Pressure 152/103 H 06/16/19 18:00 O2 Sat by Pulse Oximetry (%) 98 06/16/19 16:30 Constitutional: Yes: No Distress Eyes: Yes: WNL HENT: Yes: WNL Neck: Yes: WNL Cardiovascular: Yes: WNL Respiratory: Yes: WNL Gastrointestinal: Yes: WNL ...Rectal Exam: Yes: Deferred Renal/: Yes: WNL Breast(s): Yes: WNL Edema: No Neurological: Yes: Alert, Oriented Labs: CBC, BMP 06/16/19 09:11 06/16/19 09:11 Problem List - Problems (1) Influenza B Code(s): J10.1 - FLU DUE TO OTH IDENT INFLUENZA VIRUS W OTH RESP MANIFEST (2) Ankle sprain Code(s): S93.409A - SPRAIN OF UNSP LIGAMENT OF UNSPECIFIED ANKLE, INIT ENCNTR (3) Bronchitis Code(s): J40 - BRONCHITIS, NOT SPECIFIED ACUTE OR CHRONIC (4) CVA (cerebrovascular accident due to intracerebral hemorrhage) Code(s): I61.9 - NONTRAUMATIC INTRACEREBRAL HEMORRHAGE, UNSPECIFIED (5) Diabetes Code(s): E11.9 - TYPE 2 DIABETES MELLITUS WITHOUT COMPLICATIONS Qualifiers: Diabetes mellitus type: type 2 Diabetes mellitus terminal press operator insulin use: with terminal press operator use Diabetes mellitus complication status: with kidney complications Diabetes mellitus complication detail: with nephropathy Qualified Code(s): E11.21 - Type 2 diabetes mellitus with diabetic nephropathy; Z79.4 - residential (current) use of insulin Assessment/Plan Current Active Problems dm t2 uncontrolleed hyperglyecemia diabetoc neuropathy Demand ischemia (Acute) Fever (Acute) Hypertensive emergency (Acute) Influenza B (Acute) Abnormal Lab Results 06/15/19 06/15/19 06/16/19 19:00 21:07 00:26 Monocytes % Potassium Chloride Anion Gap BUN Creatinine Calcium AST Troponin I 0.12 H 0.11 H Total Protein Albumin Urine Protein 4+ H Urine Blood 3+ H 06/16/19 06/16/19 09:11 09:11 Monocytes % 13.6 H Potassium 3.1 L Chloride 114 H Anion Gap 7 L BUN 19.1 H Creatinine 2.8 H Calcium 7.9 L AST 70 H Troponin I Total Protein 5.7 L Albumin 2.4 L Urine Protein Urine Blood Laboratory Results - last 24 hr 06/15/19 06/15/19 06/15/19 19:00 19:00 21:07 WBC RBC Hgb Hct MCV MCH MCHC RDW Plt Count MPV Absolute Neuts (auto) Neutrophils % Lymphocytes % Monocytes % Eosinophils % Basophils % Nucleated RBC % Sodium Potassium Chloride Carbon Dioxide Anion Gap BUN Creatinine Est GFR (CKD-EPI)AfAm Est GFR (CKD-EPI)NonAf POC Glucometer Random Glucose Calcium Total Bilirubin AST ALT Alkaline Phosphatase Troponin I 0.12 H Total Protein Albumin Urine Color Yellow Urine Appearance Clear Urine pH 6.5 D Ur Specific [place] 1.016 Urine Protein 4+ H Urine Glucose (UA) Trace Urine Ketones Negative Urine Blood 3+ H Urine Nitrite Negative Urine Bilirubin Negative Urine Urobilinogen 1.0 Ur Leukocyte Esterase Negative Urine WBC (Auto) 1 Urine RBC (Auto) 3 Urine Casts (Auto) 9 U Epithel Cells (Auto) 3.3 Urine Bacteria (Auto) 15.0 Opiates Screen Negative Methadone Screen Negative Barbiturate Screen Negative Phencyclidine Screen Negative Ur Amphetamines Screen Negative MDMA (Ecstasy) Screen Negative Benzodiazepines Screen Negative Cocaine Screen Negative U Marijuana (THC) Screen Negative 06/16/19 06/16/19 06/16/19 00:26 09:11 09:11 WBC 5.5 RBC 4.86 Hgb 14.2 Hct 41.1 MCV 84.5 MCH 29.3 MCHC 34.6 RDW 14.9 Plt Count 194 MPV 7.9 Absolute Neuts (auto) 3.9 Neutrophils % 70.2 Lymphocytes % 14.6 D Monocytes % 13.6 H Eosinophils % 1.0 D Basophils % 0.6 Nucleated RBC % 0 Sodium 145 Potassium 3.1 L Chloride 114 H Carbon Dioxide 25 Anion Gap 7 L BUN 19.1 H Creatinine 2.8 H Est GFR (CKD-EPI)AfAm 27.96 Est GFR (CKD-EPI)NonAf 24.12 POC Glucometer Random Glucose 86 Calcium 7.9 L Total Bilirubin 0.8 AST 70 H ALT 39 Alkaline Phosphatase 112 Troponin I 0.11 H Total Protein 5.7 L Albumin 2.4 L Urine Color Urine Appearance Urine pH Ur Specific [place] Urine Protein Urine Glucose (UA) Urine Ketones Urine Blood Urine Nitrite Urine Bilirubin Urine Urobilinogen Ur Leukocyte Esterase Urine WBC (Auto) Urine RBC (Auto) Urine Casts (Auto) U Epithel Cells (Auto) Urine Bacteria (Auto) Opiates Screen Methadone Screen Barbiturate Screen Phencyclidine Screen Ur Amphetamines Screen MDMA (Ecstasy) Screen Benzodiazepines Screen Cocaine Screen U Marijuana (THC) Screen 06/16/19 17:05 WBC RBC Hgb Hct MCV MCH MCHC RDW Plt Count MPV Absolute Neuts (auto) Neutrophils % Lymphocytes % Monocytes % Eosinophils % Basophils % Nucleated RBC % Sodium Potassium Chloride Carbon Dioxide Anion Gap BUN Creatinine Est GFR (CKD-EPI)AfAm Est GFR (CKD-EPI)NonAf POC Glucometer 73 Random Glucose Calcium Total Bilirubin AST ALT Alkaline Phosphatase Troponin I Total Protein Albumin Urine Color Urine Appearance Urine pH Ur Specific [place] Urine Protein Urine Glucose (UA) Urine Ketones Urine Blood Urine Nitrite Urine Bilirubin Urine Urobilinogen Ur Leukocyte Esterase Urine WBC (Auto) Urine RBC (Auto) Urine Casts (Auto) U Epithel Cells (Auto) Urine Bacteria (Auto) Opiates Screen Methadone Screen Barbiturate Screen Phencyclidine Screen Ur Amphetamines Screen MDMA (Ecstasy) Screen Benzodiazepines Screen Cocaine Screen U Marijuana (THC) Screen plan: vns consult diet nutrtition bgm cvg levemir for insulin bid scale
[2019-06-16] MEDS ORDERED: PT OWN MED DRAWER 7, Y5N ONE (19:28)
[2019-06-16] MEDS ORDERED: ATORVASTATIN CA 10 MG TABLET (FP) PO SCH (22:00)
[2019-06-16] MEDS: cloNIDine HCL 0.1 MG TABLET PO SCH (22:54)
[2019-06-16] MEDS: INSULIN (LEVEMIR) 100 UNITS/ML UNITS SQ SCH (22:55)
[2019-06-16] MEDS: INSULIN SLIDING SCALE (NOVOLOG) 1 VIAL SQ SCH (22:55)
[2019-06-17] MEDS: INSULIN SLIDING SCALE (NOVOLOG) 1 VIAL SQ SCH ×2 (06:25→12:03)
[2019-06-17 08:20] LABS: ALBUMIN 2.2 g/dl (3.4-5.0); BILIRUBIN,TOTAL 0.6 mg/dL (0.2-1); BLOOD UREA NITROGEN 24.3 mg/dL (7-18); CALCIUM 7.9 mg/dL (8.5-10.1); CREATININE 2.8 mg/dL (0.55-1.3); POTASSIUM 3.3 mmol/L (3.5-5.1); TOT PROT 5.2 g/dl (6.4-8.2)
--- NOTE | 2019-06-17 09:41 | PN ---
Progress Note, Physician History of Present Illness: 58 yo male with a hx of HTN, hyperlipidemia, DM -> on insulin, CVA from a ruptured aneurysm post with shunt placement consequent infection requiring replacement, eventual coiling of the aneurysm, residual left-sided weakness, CKD , here with body aches, non productive cough, nasal congestion, general weakness , nausea, and subjective fevers. He reports that he took some cough medication with minimal relief, found with influenza B, also BP has been high. He denies CP , SOB, palpitations, dizziness, true syncope, orthopnea, PND or LE edema. He doesn't exercise at baseline because of weakness. Allergies: pork PCP: Bobby Lakhani - Current Medication List Current Medications: Active Medications Amlodipine Besylate (Norvasc -) 10 mg PO DAILY [facility] Last Admin: 06/16/19 15:06 Dose: 10 mg Atorvastatin Calcium (Lipitor -) 10 mg PO HS [facility] Last Admin: 06/16/19 22:54 Dose: 10 mg Carvedilol (Coreg -) 6.25 mg PO BID [facility] Last Admin: 06/16/19 22:54 Dose: 6.25 mg Clonidine (Catapres -) 0.1 mg PO BID [facility] Last Admin: 06/16/19 22:54 Dose: 0.1 mg Hydralazine HCl (Apresoline Injection -) 10 mg IVPUSH Q6H PRN PRN Reason: HYPERTENSION Last Admin: 06/16/19 16:54 Dose: 10 mg Insulin Aspart (Novolog Vial Sliding Scale -) 1 vial SQ [facility]; Protocol Last Admin: 06/17/19 06:25 Dose: 2 units Insulin Detemir (Levemir Vial) 10 units SQ BID [facility] Stop: 06/20/19 21:59 Last Admin: 06/16/19 22:55 Dose: 10 units Oseltamivir Phosphate (Tamiflu -) 30 mg PO BID [facility] Stop: 06/21/19 14:14 Last Admin: 06/16/19 22:59 Dose: Not Given - Objective Vital Signs: Vital Signs Temperature 98.0 F 06/17/19 06:00 Pulse Rate 68 06/17/19 06:00 Respiratory Rate 18 06/17/19 06:00 Blood Pressure 117/76 06/17/19 06:00 O2 Sat by Pulse Oximetry (%) 97 06/16/19 21:00 Eyes: Yes: WNL, Conjunctiva Clear, EOM Intact HENT: Yes: WNL, Atraumatic, Normocephalic Neck: Yes: WNL, Supple, Trachea Midline Cardiovascular: Yes: WNL, Regular Rate and Rhythm Respiratory: Yes: WNL, Regular, CTA Bilaterally Gastrointestinal: Yes: WNL, Normal Bowel Sounds Genitourinary: Yes: WNL Musculoskeletal: Yes: WNL Extremities: Yes: WNL Edema: No Integumentary: Yes: WNL Neurological: Yes: Alert, Oriented ...Motor Strength: WNL Psychiatric: Yes: WNL Labs: CBC, BMP 06/16/19 09:11 06/17/19 06:40 Assessment/Plan - Problems (1) Demand ischemia Code(s): I24.8 - OTHER FORMS OF ACUTE ISCHEMIC HEART DISEASE (2) Fever Code(s): R50.9 - FEVER, UNSPECIFIED Qualifiers: Fever type: unspecified Qualified Code(s): R50.9 - Fever, unspecified (3) Hypertensive emergency Code(s): I16.1 - HYPERTENSIVE EMERGENCY (4) Influenza B Code(s): J10.1 - FLU DUE TO OTH IDENT INFLUENZA VIRUS W OTH RESP MANIFEST (5) CVA (cerebrovascular accident due to intracerebral hemorrhage) Code(s): I61.9 - NONTRAUMATIC INTRACEREBRAL HEMORRHAGE, UNSPECIFIED (6) Diabetes Code(s): E11.9 - TYPE 2 DIABETES MELLITUS WITHOUT COMPLICATIONS Qualifiers: Diabetes mellitus type: type 2 Diabetes mellitus group home insulin use: with long term care social worker use Diabetes mellitus complication status: with kidney complications Diabetes mellitus complication detail: with nephropathy Qualified Code(s): E11.21 - Type 2 diabetes mellitus with diabetic nephropathy; Z79.4 - termination clerk (current) use of insulin (7) Hyperlipemia Code(s): E78.5 - HYPERLIPIDEMIA, UNSPECIFIED Qualifiers: Hyperlipidemia type: pure hypercholesterolemia Qualified Code(s): E78.00 - Pure hypercholesterolemia, unspecified; E78.0 - Pure hypercholesterolemia Assessment/Plan 07/31/2015 Normal biventricular size and fxn, tr TR 1. Influenza B 2. Acute on CKD with proteinuria 3. Hypertensive urgency 4. Demand ischemia 5. Medication noncompliance 6. Cerebral aneurysm post stroke, coiling 7. Hyperlipidemia 8. Type 2 DM P:1. Troponins are downtrending, replete K as you are, monitor renal function 2. echocardiogram LVH nl EF 3. Resume carvedilol 6.25 bid, lisinopril held pending renal fxn stabilization, resume Lipitor 10 qd 4. Emphasize importance of medication and diet compliance 5. Course of Tamiflu 6. Risk stratification MIBI stress test when influenza resolves. coverage for dr. Kim
[2019-06-17] MEDS ORDERED: PT OWN MED DRAWER 7, Y5N ONE (10:25)
[2019-06-17] MEDS: cloNIDine HCL 0.1 MG TABLET PO SCH (10:37)
[2019-06-17] MEDS: CARVEDILOL 6.25 MG TABLET (FP) PO SCH (10:37)
[2019-06-17] MEDS: OSELTAMIVIR PHOSPHATE 30 MG CAPSULE PO SCH (10:37)
[2019-06-17] MEDS: amLODIPine BESYLATE 10 MG TABLET (FP) PO SCH (10:37)
[2019-06-17] MEDS: INSULIN (LEVEMIR) 100 UNITS/ML UNITS SQ SCH (10:41)
[2019-06-17 10:43] VITALS: TEMP 98.2
[2019-06-17] MEDS ORDERED: POTASSIUM CHLORIDE TABS 20 MEQ TABLET.ER (FP) PO ONE (11:07)
--- NOTE | 2019-06-17 11:57 | PN ---
Progress Note (short form) - Note Progress Note: Renal follow up for CKD Seen and examined at the bedside feels better, jatin has some body aches MARTINEZ now resolved making urine tolerating diet Vital Signs Temperature 98.2 F 06/17/19 10:42 Pulse Rate 73 06/17/19 10:42 Respiratory Rate 18 06/17/19 10:42 Blood Pressure 134/86 06/17/19 10:42 O2 Sat by Pulse Oximetry (%) 97 06/16/19 21:00 Intake & Output 06/14/19 06/15/19 06/16/19 06/17/19 23:59 23:59 23:59 23:59 Intake Total 360 Output Total 400 Balance 360 -400 Weight 92.986 kg 93.803 kg NAD no JVD RRR, no M/R CTA, no wheeze or rales soft NT/ND, Obese no LE edema, clubbing or cyanosis CBC, BMP 06/16/19 09:11 06/17/19 06:40 Current Medications Amlodipine Besylate (Norvasc -) 10 mg PO DAILY [facility] Last Admin: 06/17/19 10:37 Dose: 10 mg Atorvastatin Calcium (Lipitor -) 10 mg PO HS [facility] Last Admin: 06/16/19 22:54 Dose: 10 mg Carvedilol (Coreg -) 6.25 mg PO BID [facility] Last Admin: 06/17/19 10:37 Dose: 6.25 mg Clonidine (Catapres -) 0.1 mg PO BID [facility] Last Admin: 06/17/19 10:37 Dose: 0.1 mg Hydralazine HCl (Apresoline Injection -) 10 mg IVPUSH Q6H PRN PRN Reason: HYPERTENSION Last Admin: 06/16/19 16:54 Dose: 10 mg Insulin Aspart (Novolog Vial Sliding Scale -) 1 vial SQ [facility]; Protocol Last Admin: 06/17/19 06:25 Dose: 2 units Insulin Detemir (Levemir Vial) 10 units SQ BID [facility] Stop: 06/20/19 21:59 Last Admin: 06/17/19 10:41 Dose: 10 units Oseltamivir Phosphate (Tamiflu -) 30 mg PO BID [facility] Stop: 06/21/19 14:14 Last Admin: 06/17/19 10:37 Dose: 30 mg 58 year old gentleman with history of CKD stage 4 (baseline Cr ~2.6), hemorrhagic CVA, hypertension, insulin dependent DM who presents from home with complaints of body aches, fevers, and generalized weakness and found to have Cr of 3 on presentation with elevated blood pressures. 1. Uncontrolled hypertension 2. 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 Acute influenza infection 4. Hypokalemia 5. DM on insulin Renal function stable. Continue present antihypertensives can resume ACEi on discharge Course of Tamiflu as per primary team KCL supplementation with KCl. continue insulin for DM Thank you Fidencio Bradley DO
--- NOTE | 2019-06-17 13:22 | PN ---
Progress Note, Physician Chief Complaint: Pt resting comfortably No new complaints today,BP is coming down Afebrile Pt is on Tamiflu for influenza Cardiology and renal consult appreciated renal function improving,K supplimented D/c planing - Current Medication List Current Medications: Active Medications Amlodipine Besylate (Norvasc -) 10 mg PO DAILY [facility] Last Admin: 06/17/19 10:37 Dose: 10 mg Atorvastatin Calcium (Lipitor -) 10 mg PO HS [facility] Last Admin: 06/16/19 22:54 Dose: 10 mg Carvedilol (Coreg -) 6.25 mg PO BID [facility] Last Admin: 06/17/19 10:37 Dose: 6.25 mg Clonidine (Catapres -) 0.1 mg PO BID [facility] Last Admin: 06/17/19 10:37 Dose: 0.1 mg Hydralazine HCl (Apresoline Injection -) 10 mg IVPUSH Q6H PRN PRN Reason: HYPERTENSION Last Admin: 06/16/19 16:54 Dose: 10 mg Insulin Aspart (Novolog Vial Sliding Scale -) 1 vial SQ [facility]; Protocol Last Admin: 06/17/19 12:03 Dose: 2 units Insulin Detemir (Levemir Vial) 10 units SQ BID [facility] Stop: 06/20/19 21:59 Last Admin: 06/17/19 10:41 Dose: 10 units Oseltamivir Phosphate (Tamiflu -) 30 mg PO BID [facility] Stop: 06/21/19 14:14 Last Admin: 06/17/19 10:37 Dose: 30 mg - Objective Vital Signs: Vital Signs Temperature 98.2 F 06/17/19 10:42 Pulse Rate 73 06/17/19 10:42 Respiratory Rate 18 06/17/19 10:42 Blood Pressure 134/86 06/17/19 10:42 O2 Sat by Pulse Oximetry (%) 97 06/16/19 21:00 Constitutional: Yes: No Distress Eyes: Yes: Conjunctiva Clear HENT: Yes: Atraumatic Neck: Yes: Supple Cardiovascular: Yes: Regular Rate and Rhythm Respiratory: Yes: Regular, CTA Bilaterally Gastrointestinal: Yes: Normal Bowel Sounds Musculoskeletal: Yes: WNL Extremities: Yes: WNL Edema: No Peripheral Pulses WNL: Yes Neurological: Yes: WNL, Alert, Oriented Psychiatric: Yes: WNL, Alert Labs: CBC, BMP 06/16/19 09:11 06/17/19 06:40 Assessment/Plan Infleunza B Hypertensive Emergency Demand Ischemia acute on Chronic CKD fever resolved Cerebral aneurysm,S/p cva DM Hypercholestrolemia PLAN Continue Tamiflu continue home meds F/u with cardiology, endocrine and PMD Stress test as outpatient after flu treated
[2019-06-17 14:19] VITALS: BP 109/73; PULSE 69
--- NOTE | 2019-06-17 15:26 | DS ---
DATE OF ADMISSION: 06/15/2019 DATE OF DISCHARGE: DATE OF DICTATION: 06/17/2019 This is a 58-year-old male with a history of hypertension, hyperlipidemia, diabetes on insulin, CVA from ruptured aneurysm, status post shunt placement and consequent infection requiring replacement and coiling of the aneurysm, residual left-sided weakness, CKD, admitted with influenza type B, fever and generalized weakness, and patient was noncompliant with the medication for a few days. PAST HISTORY: As mentioned before. ALLERGIES: PORK and PORK-CONTAINING PRODUCTS. MEDICATIONS: Patient was taking clonidine and insulin on the outside. At the time of visit to the emergency room, temperature was 100.4. Pulse rate was 116. Blood pressure was 203/124. Respirations 22. Saturation was 99. Chest x-ray was negative. Because of the hypertension, a CAT scan of the head done that was negative. EKG done in the emergency room showed normal sinus rhythm, cannot rule out inferior infarct, and nonspecific ST abnormality. Patient was started on Tamiflu, insulin, and Zofran given in the emergency room. Admitted in telemetry. Labs showed WBC 7.4, hemoglobin 14.8, hematocrit 43, platelets 213. Chemistry showed sodium 143, potassium 3, chloride 111, bicarbonate 24, urea nitrogen 22, creatinine was 3. Random glucose 93. AST 44, ALT 31, alkaline phosphatase 110. Troponin was 0.09. Repeat troponin showed 0.12 and 0.11. Urine showed protein 4+, blood 3+. Drug screen negative. Influenza B was positive. Patient was consulted by Cardiology, Renal, and Endocrine. As per Cardiology, elevated troponin was due to the demand ischemia. Nephrology saw the patient, and Endocrine saw the patient. Recommended to monitor the electrolytes, and patient was started on amlodipine, carvedilol, and sliding-scale insulin, Tamiflu 30 mg p.o. b.i.d. and injection of given p.r.n. for the blood pressure. Catapres given. Patient was stable on the floor. Patient became afebrile. No bleeding problem. No cough. Troponin came down. BUN and creatinine improved. Potassium supplemented. Patient was afebrile. Patient discharged home in a stable condition on Tamiflu 30 mg p.o. b.i.d. for 5 days, amlodipine, carvedilol, Lipitor, and Levemir. Recommended to follow with Cardiology, Renal, and primary and Endocrine as an outpatient. Patient discharged home in a stable condition. BARRIE FORD M.D. [id number]
--- NOTE | 2019-06-17 15:35 | EKG ---
Test Reason : Blood Pressure : / mmHG Vent. Rate : 068 BPM Atrial Rate : 068 BPM P-R Int : 156 ms QRS Dur : 082 ms QT Int : 410 ms P-R-T Axes : 027 016 024 degrees QTc Int : 435 ms NORMAL SINUS RHYTHM SEPTAL INFARCT NONSPECIFIC ST ABNORMALITY ABNORMAL ECG Confirmed by MD ALEJANDRA, GIANCARLO ([id number]) on 06/17/2019 3:35:41 PM Referred By: Nora GOLDMAN Confirmed By:GIANCARLO ROBERTS MD
== END 2019-06-17 17:09 | disposition home or self-care (01) | DRG 194 ==
LOC: JER 16:46 → JERBED 19:25 → J4S 06-16 16:06
PROVIDERS: ADMIT Family Medicine; ATTEND Family Medicine
DX: J10.1 Influenza due to other identified influenza virus with other respiratory manifestations (principal); I16.1 Hypertensive emergency; I24.8 Other forms of acute ischemic heart disease; N18.4 Chronic kidney disease, stage 4 (severe); E11.22 Type 2 diabetes mellitus with diabetic chronic kidney disease; I12.9 Hypertensive chronic kidney disease with stage 1 through stage 4 chronic kidney disease, or unspecified chronic kidney disease; Z86.73 Personal history of transient ischemic attack (TIA), and cerebral infarction without residual deficits; E78.5 Hyperlipidemia, unspecified; Z79.4 Long term (current) use of insulin; Z91.14 Patient's other noncompliance with medication regimen; E87.6 Hypokalemia; E11.21 Type 2 diabetes mellitus with diabetic nephropathy
CPT/HCPCS: 36415; 70450-TC; 71045-TC-FY; 80053; 80307; 81003; 82962; 83036; 83605; 84484; 85025; 87804; 93005; 93010; 93306-TC; 99284-25; J0735

== ENCOUNTER 2020-01-07 11:32 | Observation (INO) | payer BC, OTHER ==
[2020-01-07 11:40] VITALS: BMI 35.1
--- NOTE | 2020-01-07 12:07 | PDOC ---
History of Present Illness - General Chief Complaint: Chest Pain Stated Complaint: CHEST PAIN Time Seen by Provider: 01/07/20 12:06 History Source: Patient, Family Exam Limitations: No Limitations - History of Present Illness Initial Comments: 01/07/20 12:06 Jose Cole is a 59M with PMH T2DM, CKD, CVA in 2008 w/ residual R-sided weakness and facial droop, cerebral aneurysm s/p clipping, gout, HTN, HLD, gout presents with chest and neck pain for one week. Presents with . Patient has had worsening R neck, shoulder, and chest pain for the last week, now to the point where he cannot sleep well. Has pain and swelling in the R neck with joint pain in his shoulders, elbows, wrists. Also having burning pain in the 4th and 5th fingers in both arms that is worse with arm and neck movement. Chest pain described as R sided and worse with movement, never had pain like this before. Denies back pain or lower extremity pain. Denies fever/chills, N/V/D, urinary frequency but no dysuria. Denies SOB, abd pain, cough, palpitations, MARTINEZ, vision changes. No recent trauma or strenuous activity involving upper extremities, not as mobile after CVA. Has history of gout in foot and knee but never pain in his shoulders or neck. Has been taking Tylenol as he has CKD, not effective. Darlene Guzman Past History - Medical History Allergies/Adverse Reactions: Allergies Allergy/AdvReac Type Severity Reaction Status Date / Time Pork/Porcine Containing Allergy Vomiting Verified 01/07/20 11:40 Products Home Medications: Ambulatory Orders Clonidine HCl 0.1 mg PO BID 06/15/19 Insulin Detemir [Levemir Flextouch] 10 unit SQ BID 06/15/19 Amlodipine Besylate [Norvasc -] 5 mg PO DAILY 30 Days #30 tablet 06/17/19 Atorvastatin Ca [Lipitor] 10 mg PO HS 30 Days #30 tablet 06/17/19 Furosemide 40 mg PO DAILY 01/07/20 Insulin (LOG) Aspart [NovoLOG -] 0 units SQ TID 01/07/20 Metoprolol Tartrate 100 mg PO BID 01/07/20 Valsartan 160 mg PO DAILY 01/07/20 CVA: Yes (brain aneurysm, mild R residual) COPD: No Diabetes: Yes HTN: Yes - Surgical History Appendectomy: Yes Neurologic Surgery: Yes (vp of technology shunt body rejected, coil in brain) - Immunization History Immunization Up to Date: Yes - Psycho-Social/Smoking History Smoking Status: No Smoking History: Never smoked Have you smoked in the past 12 months: Yes Number of Cigarettes Smoked Daily: 0 - Substance Abuse Hx (Audit-C & DAST Scrn) How often the patient has a drink containing alcohol: Never Score: In Men: 4 or > Positive; In Women: 3 or > Positive: 0 Screen Result (Pos requires Nsg. Audit-10AR): Negative Review of Systems - Review of Systems Constitutional: No: Symptoms Reported HEENTM: No: Symptoms Reported Respiratory: No: Symptoms reported Cardiac (ROS): Yes: Chest Pain. No: Irregular Heart Rate, Lightheadedness, Syncope ABD/GI: No: Constipated, Diarrhea, Nausea, Poor Appetite, Poor Fluid Intake, Vomiting : No: Symptoms Reported Musculoskeletal: Yes: Neck Pain. No: Back Pain Integumentary: No: Symptoms Reported Neurological: Yes: Paresthesia, Pre-Existing Deficit (R facial droop, R upper and lower weakness). No: Headache, Numbness Endocrine: No: Symptoms Reported Hematologic/Lymphatic: No: Symptoms Reported All Other Systems: Reviewed and Negative *Physical Exam - Vital Signs Last Vital Signs Temp Pulse Resp BP Pulse Ox 98 F 82 18 147/87 99 01/07/20 11:37 01/07/20 11:37 01/07/20 11:37 01/07/20 11:37 01/07/20 11:37 - Physical Exam General Appearance: Yes: Nourished, Appropriately Dressed, Obese, Other (lying supine in bed, reluctant to move). No: Apparent Distress HEENT: positive: EOMI, ROB, Normal Voice, Pharynx Normal, Pharyngeal Erythema, Tonsillar Exudate, Tonsillar Erythema, Hearing Grossly Normal. negative: Symmetrical, Scleral Icterus (R), Scleral Icterus (L) Neck: positive: Trachea midline, Normal Thyroid, Supple, Tender lateral (R anterior neck). negative: Tender, Rigid, Lymphadenopathy (R), Lymphadenopathy (L), Rigidity, Tender midline, Thyromegaly Respiratory/Chest: positive: Chest Tender (R upper chest over pec major, worse with movement of RUE), Lungs Clear, Normal Breath Sounds. negative: Respiratory Distress, Accessory Muscle Use, Crackles, Rales, Rhonchi, Stridor Cardiovascular: positive: Regular Rhythm, Regular Rate. negative: Murmur Gastrointestinal/Abdominal: positive: Normal Bowel Sounds, Flat, Soft. negative: Tender, Distended, Guarding, Rebound Musculoskeletal: positive: Normal Inspection, Muscle Spasm (R neck). negative: CVA Tenderness, Decreased Range of Motion, Vertebral Tenderness Extremity: positive: Normal Capillary Refill, Normal Inspection, Pelvis Stable. negative: Normal Range of Motion (pain-limited PROM to RUE joints and LUE elbow, non-tender), Tender Integumentary: positive: Normal Color, Dry, Warm Neurologic: positive: Fully Oriented, Alert, Normal Mood/Affect, Normal Response, Facial Droop. negative: mergers and acquisitions associate II-XII NML intact (R-sided facial droop), Motor Strength 5/5 (4/5 strength RUE and RLE), Sensory Deficit ED Treatment Course - LABORATORY CBC & Chemistry Diagram: 01/07/20 12:45 01/07/20 12:45 Medical Decision Making - Medical Decision Making 01/07/20 12:56 Patient has known history of prior CVA with unchanged R residual facial droop and 4/5 motor weakness and CKD here for chest pain and muscle//joint pain for the last week. Chest pain is reproducible but concerning given Hx DM, HLD, CVA. Neck pain is high MSK and no midline tenderness. Bilateral upper extremity joint pain with radicular pain to ulnar distribution to both arms, no recent injury. Concerned for ACS for chest pain, unlikely to be PNA, PE, dissection or other cardiac/pulmonary pathology given HPI. Neck and joint pain consistent with MSK aches vs neck strain vs less likely gout vs. URI but getting CT c-spine for evaluation of cervical radiculopathy. VSS, no new neuro deficits, just pain to joints and chest. Evaluating broadly with CBC/CMP/CP/ECG/CXR/Mag/uric acid. ECG shows NSR with HR 82, QRS 84, QTc 436, flattened T waves in II/III, V3-V6, no MARGARITA/D or TWI. CXR bedside read poor inspiratory effort but grossly unchanged from prior 7 months ago, no infiltrate noted. Labs notable for: - CBC WNL - coags WNL - glucose 210 - Cr 3.6 up from peak 3.0 - Ca 8.4, adjusted is 9.5 - uric acid 11.9 - UA 3+ protein 01/07/20 13:39 CT c-spine no acute fracture. Getting medications for pain now. Patient re-evaluated, reports patient having significantly less motor ability than last week. Considering MRI brain non-con for further evaluation of weakness given prior CVA. 01/07/20 14:03 Patient has cerebral aneurysm coil in place, cannot get MRI. Will admit to tele for ACS evaluation. 01/07/20 14:[address] Robledo, who would like patient to be admitted to hospital. Will MDMB hospitalist team now. 01/07/20 15:[address] Quijano, accepts admission to tele/obs for ACS under Dr. Coley. Unclear what else to make of weakness, unable to MRI, unlikely to have bleed, no recent trauma. Requesting neuro consult for further recommendation. 01/07/20 15:[address] Smith who has no recommendations, weakness for 7 days to upper extremities but based on HPI less likely to be CVA. Consult placed. Discharge - Discharge Information Problems reviewed: Yes Clinical Impression/Diagnosis: Neck pain Chest pain Qualifiers: Chest pain type: precordial pain Qualified Code(s): R07.2 - Precordial pain Acute on chronic kidney failure Qualifiers: Acute renal failure type: unspecified Chronic kidney disease stage: unspecified stage Qualified Code(s): N17.9 - Acute kidney failure, unspecified Condition: Stable - Admission Yes - Follow up/Referral - Patient Discharge Instructions - Post Discharge Activity
[2020-01-07] MEDS ORDERED: ACETAMINOPHEN 1000 MG/100 ML VIAL (NON FORMULARY) IVPB ONE (12:26)
[2020-01-07] MEDS ORDERED: LIDOCAINE 5% TOPICAL PATCH TP ONE (12:36)
[2020-01-07 12:53] LABS: BASO % 1.2 % (0-2.0); EOS % 2.6 % (0-4.5); HEMATOCRIT 36.5 % (35.4-49); HEMOGLOBIN 12.5 GM/dL (11.7-16.9); LYMPH % 20.5 % (8-40); MCH 30.5 pg (25.7-33.7); MCHC 34.4 g/dl (32.0-35.9); MEAN CELL VOLUME 88.7 fl (80-96); MEAN PLT VOLUME 8.5 fl (7.5-11.1); MONO % 7.9 % (3.8-10.2); NEUT % 67.8 % (42.8-82.8); PLATELET COUNT 284 K/MM3 (134-434); RBC 4.11 M/mm3 (4.00-5.60); RDW 13.1 % (11.9-15.9); WHITE BLOOD COUNT 7.6 K/mm3 (4.0-10.0)
[2020-01-07 12:59] LABS: INR 1.01 (0.83-1.09); PROTHROMBIN TIME (PATIENT) 11.9 SEC (9.7-13.0)
[2020-01-07 13:02] LABS: ACTIVATED PTT 32.4 SECONDS (25.2-36.5)
[2020-01-07 13:26] LABS: ALBUMIN 2.6 g/dl (3.4-5.0); ALK PHOS 119 U/L (45-117); ANION GAP 10 MMOL/L (8-16); BILIRUBIN,TOTAL 0.7 mg/dL (0.2-1); BLOOD UREA NITROGEN 41.8 mg/dL (7-18); CALCIUM 8.4 mg/dL (8.5-10.1); CHLORIDE 116 mmol/L (98-107); CO2 21 mmol/L (21-32); CREATININE 3.6 mg/dL (0.55-1.3); GLUCOSE,RANDOM 210 mg/dL (74-106); MAGNESIUM 2.1 mg/dL (1.8-2.4); POTASSIUM 3.7 mmol/L (3.5-5.1); SGOT/AST 14 U/L (15-37); SGPT/ALT 20 U/L (13-61); SODIUM 146 mmol/L (136-145); TOT PROT 6.1 g/dl (6.4-8.2); URIC ACID 11.9 mg/dL (2.6-7.2)
[2020-01-07] MEDS ORDERED: ASPIRIN 81 MG CHEWABLE TABLETS PO ONE (13:35)
[2020-01-07] MEDS ORDERED: ASPIRIN COATED 81 MG TABLET.EC ONE (13:36)
[2020-01-07] MEDS ORDERED: ACETAMINOPHEN INJECTION 100 ML IVPB ONE (13:36)
[2020-01-07] MEDS ORDERED: LIDOCAINE 5% TOPICAL PATCH ONE (13:37)
[2020-01-07] MEDS ORDERED: ASPIRIN 325 MG ENTERIC COATED TABLET (FP) ONE (13:40)
[2020-01-07 14:19] LABS: EPI CELLS 6 /uL (0-25.1); HYALINE CASTS 1 /uL (0-3.1); PH,URINE 5.5 (5.0-8.0); URINE APPEARANCE CLEAR; URINE BACTERIA 2 /uL (0-1359); URINE BILIRUBIN NEGATIVE (NEGATIVE); URINE COLOR YELLOW; URINE GLUCOSE (UA) TRACE (NEGATIVE); URINE KETONE NEGATIVE (NEGATIVE); URINE LEUK ESTERASE NEGATIVE (NEGATIVE); URINE NITRITE NEGATIVE (NEGATIVE); URINE PROTEIN 3+ (NEGATIVE); URINE RBC 5 /uL (0-23.9); URINE UROBILINOGEN 0.2 mg/dL (0.2-1.0); URINE WBC 8 /uL (0-25.8)
[2020-01-07] MEDS ORDERED: SODIUM CHLORIDE 1,000 ML IV SCH (17:00)
[2020-01-07] MEDS ORDERED: methylPREDNISolone NA SUCC 40 MG/1 ML VIAL IVPUSH ONE (17:06)
--- NOTE | 2020-01-07 17:35 | HP ---
CHIEF COMPLAINT: Chest pain and arm pain PCP: HISTORY OF PRESENT ILLNESS: 59 YO M PMH DM [last A1C 7.4 (06/1019)], CKD, CVA (2008, right sided residual weakness, facial droop), HTN, HLD p/w a week of progressive pain on the R arm and one day of R sided upper chest pain. The pain started in his his right wri st, which then eventually developed along his elbow and then later his R shoulder. The pain spread to his R upper chest for a day, and he developed pain in his 4th,5th digit in his R hand. Pt describes the pain as burning and "pulling." Ice packs worsened the pain, and Tylenol did not help. All of his pain is worsened by movement. The pain has been affecting his sleep. This is the 1st time he's had pain like this. Denies recent trauma, travel, or any strenuous activity. ER course was notable for: (1) EKG: NSR, anterior infarct age undetermined. 82 bpm, QTC 436 (2) Trop: <0.02, CKMB 3.2, Cr Kinase 223 (3) BUN/Cr 41.8/3.6 (~2.8 on last admission) (4) UA: 3+ protein (3+ on previous admissions) (5) CT c-spine: mild moderate degenerative arthritis. no acute pathology (6) CXR: no acute pathology Recent Travel: denies PAST MEDICAL HISTORY: DM [last A1C 7.4 (06/1019)], CKD, CVA (2008, right sided residual weakness, facial droop), HTN, HLD, gout (knees,foot) PAST SURGICAL HISTORY: appendectomy brain aneurysm repair (s/p coil) [employer] that his "body rejected" Social History: Smoking: denies Alcohol: occasionally, 1 beer/ week Drugs: denies walks with cane/walker Allergies Pork/Porcine Containing Products Allergy (Verified 01/07/20 11:40) Vomiting Family Hisotry father: lung cancer mother DM HOME MEDICATIONS: Home Medications Medication Instructions Recorded Clonidine HCl 0.1 mg PO BID 06/15/19 Amlodipine Besylate [Norvasc -] 10 mg PO DAILY 01/07/20 Atorvastatin Ca [Lipitor] 80 mg PO HS 01/07/20 Furosemide 40 mg PO DAILY 08/23/20 Insulin (LOG) Aspart [NovoLOG -] 0 units SQ TID 01/07/20 Insulin (Levemir) [Levemir Vial] 20 units SQ HS 01/07/20 Insulin (Levemir) [Levemir Vial] 28 units SQ DAILY 01/07/20 Metoprolol Tartrate 100 mg PO BID 01/07/20 Valsartan 160 mg PO DAILY 01/07/20 REVIEW OF SYSTEMS CONSTITUTIONAL: weakness Absent: fever, chills, diaphoresis, generalized weakness, malaise, loss of appetite, weight change HEENT: Absent: rhinorrhea, nasal congestion, throat pain, throat swelling, difficulty swallowing, mouth swelling, ear pain, eye pain, visual changes CARDIOVASCULAR: Right upper chest pain Absent: syncope, palpitations, irregular heart rate, lightheadedness, peripheral edema RESPIRATORY: Absent: cough, shortness of breath, dyspnea with exertion, orthopnea, wheezing, stridor, hemoptysis GASTROINTESTINAL: Absent: abdominal pain, abdominal distension, nausea, vomiting, diarrhea, constipation, melena, hematochezia GENITOURINARY: Absent: dysuria, frequency, urgency, hesitancy, hematuria, flank pain, genital pain MUSCULOSKELETAL: chronic pain in knees, R-sided neck pain, pain in R shoulder, R wrist, R elbow, chronic leg swelling (takes furosemide) Absent: myalgia, joint swelling, back pain, SKIN: Absent: rash, itching, pallor HEMATOLOGIC/IMMUNOLOGIC: Absent: easy bleeding, easy bruising, lymphadenopathy, frequent infections ENDOCRINE: Absent: unexplained weight gain, unexplained weight loss, heat intolerance, cold intolerance NEUROLOGIC: Absent: headache, focal weakness or paresthesias, dizziness, unsteady gait, seizure, mental status changes, bladder or bowel incontinence PSYCHIATRIC: Absent: anxiety, depression, suicidal or homicidal ideation, hallucinations. PHYSICAL EXAMINATION Vital Signs - 24 hr 01/07/20 01/07/20 01/07/20 11:37 14:47 15:02 Temperature 98 F 98.0 F Pulse Rate 82 Pulse Rate [ 71 72 Right Radial] Respiratory 18 20 Rate Blood Pressure 147/87 Blood Pressure 128/68 143/80 [Left Arm] O2 Sat by Pulse 99 100 99 Oximetry (%) GENERAL: Awake, alert, and fully oriented, in no acute distress. HEAD: Normal with no signs of trauma. EYES: Pupils equal, round and reactive to light, extraocular movements intact, No lid lag. EARS, NOSE, THROAT: Ears normal, nares patent, oropharynx clear without exudates. Moist mucous membranes. NECK: Normal range of motion, supple without lymphadenopathy, JVD, or masses. pain on palpation of R side LUNGS: Breath sounds equal, clear to auscultation bilaterally. No wheezes, and no crackles. No accessory muscle use. HEART: Regular rate and rhythm, normal S1 and S2 without murmur, rub or gallop. R upper chest pain on palpation ABDOMEN: obese, Soft, nontender, not distended, normoactive bowel sounds,well- healed surgical scar, hernia on R side MUSCULOSKELETAL: Normal range of motion at all joints. No bony deformities or tenderness. No CVA tenderness. UPPER EXTREMITIES: 2+ pulses, warm, well-perfused. No cyanosis. No clubbing. No peripheral edema. Full ROM b/l, only pain with movement. Pain on palpation of R shoulder. 5/5 strength LUE; 4/5 strength RUE consistent with residual weakness s/p CVA; sensation intact throughout LOWER EXTREMITIES: 2+ pulses, warm, well-perfused. No calf tenderness. No peripheral edema. 5/5 strength LLE; 4/5 strength RLE consistent with residual weakness s/p CVA; sensation intact throughout NEUROLOGICAL: Cranial nerves II-XII intact. Normal speech. PSYCHIATRIC: Cooperative. Good eye contact. Appropriate mood and affect. SKIN: Warm, dry, normal turgor, no rashes or lesions noted, normal capillary refill. Laboratory Results - last 24 hr 01/07/20 01/07/20 01/07/20 12:45 12:45 12:45 WBC 7.6 RBC 4.11 Hgb 12.5 Hct 36.5 MCV 88.7 MCH 30.5 MCHC 34.4 RDW 13.1 D Plt Count 284 D MPV 8.5 Absolute Neuts (auto) 5.1 Neutrophils % 67.8 Lymphocytes % 20.5 D Monocytes % 7.9 Eosinophils % 2.6 D Basophils % 1.2 Nucleated RBC % 0 PT with INR 11.90 INR 1.01 PTT (Actin FS) 32.4 Sodium 146 H Potassium 3.7 Chloride 116 H Carbon Dioxide 21 Anion Gap 10 BUN 41.8 H Creatinine 3.6 H Est GFR (CKD-EPI)AfAm 20.49 Est GFR (CKD-EPI)NonAf 17.68 Random Glucose 210 H Uric Acid 11.9 H Calcium 8.4 L Magnesium 2.1 Total Bilirubin 0.7 AST 14 L ALT 20 Alkaline Phosphatase 119 H Creatine Kinase 223 Creatine Kinase Index 1.4 CK-MB (CK-2) 3.2 Troponin I < 0.02 Total Protein 6.1 L Albumin 2.6 L Urine Color Urine Appearance Urine pH Ur Specific [place] Urine Protein Urine Glucose (UA) Urine Ketones Urine Blood Urine Nitrite Urine Bilirubin Urine Urobilinogen Ur Leukocyte Esterase Urine WBC (Auto) Urine RBC (Auto) Urine Casts (Auto) U Epithel Cells (Auto) Urine Bacteria (Auto) 01/07/20 14:00 WBC RBC Hgb Hct MCV MCH MCHC RDW Plt Count MPV Absolute Neuts (auto) Neutrophils % Lymphocytes % Monocytes % Eosinophils % Basophils % Nucleated RBC % PT with INR INR PTT (Actin FS) Sodium Potassium Chloride Carbon Dioxide Anion Gap BUN Creatinine Est GFR (CKD-EPI)AfAm Est GFR (CKD-EPI)NonAf Random Glucose Uric Acid Calcium Magnesium Total Bilirubin AST ALT Alkaline Phosphatase Creatine Kinase Creatine Kinase Index CK-MB (CK-2) Troponin I Total Protein Albumin Urine Color Yellow Urine Appearance Clear Urine pH 5.5 Ur Specific [place] 1.011 Urine Protein 3+ H Urine Glucose (UA) Trace Urine Ketones Negative Urine Blood Trace Urine Nitrite Negative Urine Bilirubin Negative Urine Urobilinogen 0.2 Ur Leukocyte Esterase Negative Urine WBC (Auto) 8 Urine RBC (Auto) 5 Urine Casts (Auto) 1 U Epithel Cells (Auto) 6 Urine Bacteria (Auto) 2 ASSESSMENT/PLAN: 59 YO M PMH DM [last A1C 7.4 (06/1019)], CKD, CVA (2008, right sided residual weakness, facial droop), HTN, HLD p/w a week of progressive pain on the R arm and one day of R sided reproducible upper chest pain. #Chest pain likely 2/2 Costochondritis -R-sided upper chest pain reproducible on palpation -EKG: NSR, anterior infarct age undetermined. 82 bpm, QTC 436 -Trop: <0.02, CKMB 3.2, Cr Kinase 223 -CT c-spine: mild moderate degenerative arthritis. no acute pathology -CXR: no acute pathology -f/u trop -IV solumedrol 30 mg ONCE #CHELLY on CKD -BUN/Cr 41.8/3.6 (~2.8 on last admission) -avoid nephrotoxic agents. Hold home valsartan and lasix -pt shows no clinical signs of overload (skin turgor, crackles). hydrate gently: NS@50 ml/hr #HTN -c/w home amlodipine 10 mg PO daily, clonidine 0.1 mg PO BID, metoprolol tartrate 100 mg PO BID -hold home valsartan and lasix 2/2 CHELLY #DM ISS BGM levemir #HLD home atorvastatin 80 #DVT SCDs cannot give heparin because of allergy to pork/porcine containing products #FEN hydrate gently: NS@50 ml/hr monitor lytes diabetic diet #DISPO maintain tele obs Family Medical History Family History: As Documented Visit type - Emergency Visit Emergency Visit: Yes ED Registration Date: 01/07/20 Care time: The patient presented to the Emergency Department on the above date and was hospitalized for further evaluation of their emergent condition. - New Patient This patient is new to me today: Yes Date on this admission: 01/07/20 - Critical Care Critical Care patient: No ATTENDING PHYSICIAN STATEMENT I saw and evaluated the patient. I reviewed the resident's note and discussed the case with the resident. I agree with the resident's findings and plan as documented. SUBJECTIVE: OBJECTIVE: ASSESSMENT AND PLAN:
[2020-01-07] MEDS: amLODIPine BESYLATE 10 MG TABLET (FP) PO SCH (17:37)
--- NOTE | 2020-01-07 18:02 | PN ---
Teaching Attending Note Name of Resident: Caleb Mtz ATTENDING PHYSICIAN STATEMENT I saw and evaluated the patient. I reviewed the resident's note and discussed the case with the resident. I agree with the resident's findings and plan as documented. SUBJECTIVE: 59 Y/O MALE WITH CKD, HTN, ARTHRITIS, DM, HX OF CVA WITH RIGHT SIDED RESIDUAL WEAKNESS (WALKS WITH A CANE), BRAIN ANEURYSM, S/P COILING, GOUT PRESENTS WITH RIGHT SIDED CHEST PAIN, RADIATION TO THE RIGHT ARM. pT REPORTS HAVING ISSUES WITH BURNING RIGHT ARM PAIN FOR MONTHS, POS NECK PAIN WELL, BUT WORRIED THIS AM BECAUSE STARTED TO HAVE CHEST PAIN WELL. NO RADIATION OF THE PAIN TO THE BACK, NO PLEURITIC COMPONENT TO THE PAIN ON LABS HE WAS NOTED TO HAVE CHELLY. OBJECTIVE: GEN: PT A AND O, NAD HEENT: NC/AT, EOMI, CROWDED OROPHARYNX POSTERIOR NECK MILD TENDERNESS, SUPPLE CV: POS S1, S2, RRR CHEST: POS REPRODUCIBLE RIGHT SIDED CHEST PAIN UPON PALPATION CTA GLYNN NO WHEEZES, RALES OR RHONCHI ABD: SOFT, OBESE, POS VENTRAL HERNIA, SURGICAL SCAR WELL HEALED EXT: NO C/C/E RIGHT SIDED UPPER AND LOWER DECREASED MOTOR STRENGTH 4/5 (NOT NEW) LABS: REVIEWED WITH RESIDENTS CXR/EKG: REVIEWED WITH RESIDENTS ASSESSMENT AND PLAN: 59 Y/O MALE WITH THE ABOVE MED HX ADMITTED FOR RIGHT SIDED CHEST PAIN, ACUTE ON CKD *RIGHT SIDED CHEST PAIN - EKG STABLE CHECK CARDIAC ENZYMES MONITOR ON TELE OVERNIGHT BELIEVE THIS IS MORE A COSTOCHONDRITIS -- POS REPRODUCIBLE PAIN - NO NSAIDS DUE TO CHELLY - ONE DOSE OF SOLUMEDROL AND REASSESS IN AM - SERIAL CARDIAC ENZYMES, NEG TO DATE *ACUTE ON CKD - HOLD LASIX AND LOSARTAN FOR NOW RECHECK IN AM CAN GENTLY HYDRATE FOR 1/2 LITER AND SEE IF CR IMPROVES IN AM RENAL EVAL *NECK PAIN - ?CERVICAL DISEASE CT NECK DONE - F/U RESULTS * HTN - HOLD ARB AND LASIX, CONT BB *DVT PROPHY D/W RESIDENTS, PT AND PT'S
--- NOTE | 2020-01-07 18:12 | PDOC ---
Documentation entered by Nazanin Aranda SCRIBE, acting as scribe for Reina Millard MD. Reina Millard MD: This documentation has been prepared by the umuibeManoj Ana, SCRIBE, under my direction and personally reviewed by me in its entirety. I confirm that the documentation accurately reflects all work, treatment, procedures, and medical decision making performed by me. Attending Attestation - Resident Resident Name: RandyJamison - ED Attending Attestation I have performed the following: I have examined & evaluated the patient, The case was reviewed & discussed with the resident, I agree w/resident's findings & plan, Exceptions are as noted - HPI HPI: 01/07/20 12:17 Patient is a 59 year old male with a significant past medical history of diabetes, hypertension, hyperlipidemia, gout, CKD, and CVA w/ facial droop and residual R-sided weakness, who presents to the ED with neck and chest pain x1 week. Patient stated he has pain and edema in his right neck, shoulder, elbows and wrists. Patient said his chest pain is mostly towards the right and gets worse upon movement. Patient stated his symptoms have been getting worse to the point where it is hindering him from sleeping well. Patient also reports a "burning" pain in his fingers which is also worse with movement. Patient denies: fevers, chills, headache, any vision changes, nausea, vomiting, SOB, cough, palpitations, abdominal pain, diarrhea, dysuria, back pain, pain in lower extremities, or any other related symptoms Allergies: Pork/Porcine containing products - Physicial Exam PE: 01/07/20 16:22 Agree with resident exam. Patient is alert and oriented and in no acute distress. CV: rrr no m/r/g Pulm: CTA b/l abodomen: soft, non tender, non distended. Neuro: alert and oriented x 3. RUE 4/5 strength bone glue maker, biceps, triceps. 01/07/20 17:28 - Medical Decision Making 01/07/20 17:29 Pt presents to the ED complaining of the acute onset of diffuse bilateral upper extremity pain and subjective worsening of his chronic RUE weakness. Also complaining of chest pain that started today, HEART score is 4. EKG shows no acute ischemia and labs are within normal limits. Will admit for ACS. Slight concern for cord compression given upper extremity symptoms. Ct shows no acute findings. Plan was for MRI, but patient has anneurysm coil, and suspicion is not high. 01/07/20 18:12 Discharge - Discharge Information Problems reviewed: Yes Clinical Impression/Diagnosis: Neck pain Chest pain Qualifiers: Chest pain type: precordial pain Qualified Code(s): R07.2 - Precordial pain Acute on chronic kidney failure Qualifiers: Acute renal failure type: unspecified Chronic kidney disease stage: unspecified stage Qualified Code(s): N17.9 - Acute kidney failure, unspecified Condition: Stable Disposition: HOME - Follow up/Referral - Patient Discharge Instructions - Post Discharge Activity
[2020-01-07] MEDS ORDERED: methylPREDNISolone NA SUCC 40 MG/1 ML VIAL ONE (18:31)
[2020-01-07] MEDS ORDERED: cloNIDine HCL 0.1 MG TABLET ONE (21:24)
[2020-01-07] MEDS ORDERED: METOPROLOL TARTRATE 50 MG TABLET (FP) ONE (21:24)
[2020-01-07] MEDS ORDERED: INSULIN (LEVEMIR) 100 UNITS/ML UNITS SQ ONE (21:25)
[2020-01-07] MEDS ORDERED: INSULIN SLIDING SCALE (NOVOLOG) 1 VIAL SQ ONE ×2 (21:25→21:38)
[2020-01-07] MEDS: cloNIDine HCL 0.1 MG TABLET PO SCH (21:34)
[2020-01-07] MEDS: INSULIN (LEVEMIR) 100 UNITS/ML UNITS SQ SCH (21:34)
[2020-01-07] MEDS: METOPROLOL TARTRATE 50 MG TABLET (FP) PO SCH (21:34)
[2020-01-07] MEDS: INSULIN SLIDING SCALE (NOVOLOG) 1 VIAL SQ SCH (21:34)
[2020-01-07] MEDS ORDERED: LIDOCAINE PATCH REMOVAL MC SCH (22:00)
[2020-01-07] MEDS ORDERED: ATORVASTATIN CA 80 MG TABLET (FP) PO SCH (22:00)
[2020-01-08 07:14] LABS: BASO % 0.5 % (0-2.0); EOS % 0.3 % (0-4.5); HEMATOCRIT 34.2 % (35.4-49); HEMOGLOBIN 11.8 GM/dL (11.7-16.9); LYMPH % 16.7 % (8-40); MCH 30.1 pg (25.7-33.7); MCHC 34.6 g/dl (32.0-35.9); MEAN CELL VOLUME 87.1 fl (80-96); MEAN PLT VOLUME 8.6 fl (7.5-11.1); MONO % 4.2 % (3.8-10.2); NEUT % 78.3 % (42.8-82.8); PLATELET COUNT 282 K/MM3 (134-434); RBC 3.92 M/mm3 (4.00-5.60); RDW 12.9 % (11.9-15.9); WHITE BLOOD COUNT 8.2 K/mm3 (4.0-10.0)
[2020-01-08] MEDS: INSULIN SLIDING SCALE (NOVOLOG) 1 VIAL SQ SCH ×2 (07:32→11:34)
[2020-01-08] MEDS: INSULIN (LEVEMIR) 100 UNITS/ML UNITS SQ SCH (07:33)
[2020-01-08] MEDS ORDERED: INSULIN (LEVEMIR) 100 UNITS/ML UNITS SQ ONE (07:34)
[2020-01-08 07:58] LABS: ALBUMIN 2.6 g/dl (3.4-5.0); BILIRUBIN,TOTAL 0.8 mg/dL (0.2-1); BLOOD UREA NITROGEN 42.7 mg/dL (7-18); CALCIUM 8.1 mg/dL (8.5-10.1); CREATININE 3.5 mg/dL (0.55-1.3); MAGNESIUM 2.1 mg/dL (1.8-2.4); PHOSPHOROUS 3.7 mg/dL (2.5-4.9); POTASSIUM 3.9 mmol/L (3.5-5.1); TOT PROT 5.8 g/dl (6.4-8.2)
--- NOTE | 2020-01-08 08:10 | CON.NEURO ---
Consult Consult Specialty:: [facility] Reason for Consultation:: marcellus - History of Present Illness History of Present Illness: this is a 59-year-old right-handed man with multiple medical problem came in to the hospital according to the with increasing difficulty with the arm. No report of any recent travel no report of any recent head trauma patient describes mostly pain in the right arm with weight leading to the right hand with difficulty using his arm according to the he has been with increasing difficulty with the arm. 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 (s/p rutptured brain anuerysm with residual left sided weakness) Cardio/Vascular: Yes: HTN, Hyperlipdemia Renal/: Yes: Renal Inusuff Endocrine: Yes: Diabetes Mellitus (on insulin) - Past Surgical History Past Surgical History: Yes: Appendectomy - Alcohol/Substance Use Hx Alcohol Use: No History of Substance Use: reports: None - Smoking History Smoking history: Never smoked Have you smoked in the past 12 months: Yes Aproximately how many cigarettes per day: 0 - Social History Usual Living Arrangement: Other (4 children, grown) Home Medications - Allergies Allergies/Adverse Reactions: Allergies Allergy/AdvReac Type Severity Reaction Status Date / Time Pork/Porcine Containing Allergy Vomiting Verified 01/07/20 11:40 Products - Home Medications Home Medications: Ambulatory Orders Clonidine HCl 0.1 mg PO BID 06/15/19 Amlodipine Besylate [Norvasc -] 10 mg PO DAILY 01/07/20 Atorvastatin Ca [Lipitor] 80 mg PO HS 01/07/20 Furosemide 40 mg PO DAILY 01/07/20 Insulin (LOG) Aspart [NovoLOG -] 0 units SQ TID 01/07/20 Insulin (Levemir) [Levemir Vial] 20 units SQ HS 01/07/20 Insulin (Levemir) [Levemir Vial] 28 units SQ DAILY 01/07/20 Metoprolol Tartrate 100 mg PO BID 01/07/20 Valsartan 160 mg PO DAILY 01/07/20 Family Medical History Family History: Unremarkable Review of Systems - Review of Systems Constitutional: reports: No Symptoms Eyes: reports: No Symptoms HENT: reports: No Symptoms Neurological: reports: Dizziness, Headache, Incoordination, Parasthesia Physical Exam-Neuro Vital Signs: Vital Signs Temperature 97.5 F L 01/08/20 07:39 Pulse Rate 61 01/08/20 07:39 Respiratory Rate 17 01/08/20 07:39 Blood Pressure 142/97 01/08/20 07:39 O2 Sat by Pulse Oximetry (%) 97 01/08/20 07:39 Constitutional: Yes: Well Nourished Neck: Yes: WNL Cardiovascular: Yes: WNL Respiratory: Yes: WNL Labs: CBC, BMP 01/08/20 06:05 01/08/20 06:05 INR, PTT INR 1.01 (0.83-1.09) 01/07/20 12:45 - Neuro Exam Level Of Consciousness: Yes: Oriented to Person, Oriented to Place, Oriented to Time Eyes: Yes: PERRLA Speech: WNL Dominant Hand: Right Cranial Nerves II-XII Intact: Yes Gag: Present DTR's: 1+ Left Bicep, 1+ Right Bicep, 1+ Left Tricep, 1+ Right Tricep Response to light touch: Normal Response to pain prick: Normal Response to temperature: Normal Motor Strength: 3/5: Right Arm, 4/5: Left Leg, Right Leg, Left Arm Gait: Deferred Imaging - Results Cat Scan: Image Reviewed Problem List - Problems (1) Rotator cuff syndrome of right shoulder and allied disorders Code(s): M75.101 - UNSP ROTATR-CUFF TEAR/RUPTR OF RIGHT SHOULDER, NOT TRAUMA (2) Acute on chronic kidney failure Code(s): N17.9 - ACUTE KIDNEY FAILURE, UNSPECIFIED; N18.9 - CHRONIC KIDNEY DISE ASE, UNSPECIFIED Qualifiers: Acute renal failure type: unspecified Chronic kidney disease stage: unspecified stage Qualified Code(s): N17.9 - Acute kidney failure, unspecified; N18.9 - Chronic kidney disease, unspecified (3) Neck pain Code(s): M54.2 - CERVICALGIA (4) Renal insufficiency Code(s): N28.9 - DISORDER OF KIDNEY AND URETER, UNSPECIFIED Assessment/Plan 1. MRI of the brain with no contrast due to the right arm drift. 2. Rheumatology evaluation. 3. ESR C-reactive protein. 4. Avoid gabapentin due to kidney failure. 5. Weight loss was advised. 6. DVT prophylaxis. 7. Would benefit from an MRI of the right shoulder as an outpatient Thank you very much for allowing me to be part of this patient neurological care will follow the patient during the admission Kieran Smith M.D. [phone]
[2020-01-08 10:49] VITALS: TEMP 98
[2020-01-08] MEDS: amLODIPine BESYLATE 10 MG TABLET (FP) PO SCH (10:59)
[2020-01-08] MEDS: METOPROLOL TARTRATE 50 MG TABLET (FP) PO SCH (10:59)
[2020-01-08] MEDS: cloNIDine HCL 0.1 MG TABLET PO SCH (10:59)
[2020-01-08] MEDS ORDERED: METOPROLOL TARTRATE 50 MG TABLET (FP) ONE (11:07)
[2020-01-08] MEDS ORDERED: cloNIDine HCL 0.1 MG TABLET ONE (11:07)
--- NOTE | 2020-01-08 12:18 | PN ---
Teaching Attending Note Name of Resident: Yulissa Vega ATTENDING PHYSICIAN STATEMENT I saw and evaluated the patient. I reviewed the resident's note and discussed the case with the resident. I agree with the resident's findings and plan as documented. SUBJECTIVE: pt seen and examined OBJECTIVE: Last Vital Signs Temp Pulse Resp BP Pulse Ox 98.0 F 68 17 138/74 98 01/08/20 10:48 01/08/20 10:48 01/08/20 10:48 01/08/20 10:48 01/08/20 10:48 GENERAL: Awake, alert, and fully oriented, in no acute distress. HEAD: Normal with no signs of trauma. EYES: Pupils equal, round and reactive to light, sclera anicteric, conjunctiva clear. LUNGS: Breath sounds equal, clear to auscultation bilaterally. No wheezes, and no crackles. No accessory muscle use. HEART: Regular rate and rhythm, normal S1 and S2 ABDOMEN: Soft, nontender, not distended MUSCULOSKELETAL: Normal range of motion at all joints. No bony deformities or tenderness. No CVA tenderness. UPPER EXTREMITIES: 2+ pulses, warm, well-perfused. No cyanosis. No clubbing. No peripheral edema. Rt shoulder: limited active and passive movement, tenderness but no swelling, warmth LOWER EXTREMITIES: 2+ pulses, warm, well-perfused. No calf tenderness. No peripheral edema. NEUROLOGICAL: Cranial nerves II-XII intact. Normal speech. CBCD WBC 8.2 K/mm3 (4.0-10.0) 01/08/20 06:05 RBC 3.92 M/mm3 (4.00-5.60) L 01/08/20 06:05 Hgb 11.8 GM/dL (11.7-16.9) 01/08/20 06:05 Hct 34.2 % (35.4-49) L 01/08/20 06:05 MCV 87.1 fl (80-96) 01/08/20 06:05 MCHC 34.6 g/dl (32.0-35.9) 01/08/20 06:05 RDW 12.9 % (11.9-15.9) 01/08/20 06:05 Plt Count 282 K/MM3 (134-434) 01/08/20 06:05 MPV 8.6 fl (7.5-11.1) 01/08/20 06:05 CMP Sodium 142 mmol/L (136-145) 01/08/20 06:05 Potassium 3.9 mmol/L (3.5-5.1) 01/08/20 06:05 Chloride 111 mmol/L (98-107) H 01/08/20 06:05 Carbon Dioxide 20 mmol/L (21-32) L 01/08/20 06:05 Anion Gap 11 MMOL/L (8-16) 01/08/20 06:05 BUN 42.7 mg/dL (7-18) H 01/08/20 06:05 Creatinine 3.5 mg/dL (0.55-1.3) H 01/08/20 06:05 Calcium 8.1 mg/dL (8.5-10.1) L 01/08/20 06:05 Total Bilirubin 0.8 mg/dL (0.2-1) 01/08/20 06:05 AST 13 U/L (15-37) L 01/08/20 06:05 ALT 18 U/L (13-61) 01/08/20 06:05 Alkaline Phosphatase 108 U/L (45-117) 01/08/20 06:05 Total Protein 5.8 g/dl (6.4-8.2) L 01/08/20 06:05 Albumin 2.6 g/dl (3.4-5.0) L 01/08/20 06:05 Active Medications Amlodipine Besylate (Norvasc -) 10 mg PO DAILY TED Last Admin: 01/08/20 10:59 Dose: 10 mg Documented by: Atorvastatin Calcium (Lipitor -) 80 mg PO HS TED Last Admin: 01/07/20 21:34 Dose: 80 mg Documented by: Clonidine (Catapres -) 0.1 mg PO BID TED Last Admin: 01/08/20 10:59 Dose: 0.1 mg Documented by: Sodium Chloride (Normal Saline -) 1,000 mls @ 50 mls/hr IV ASDIR TED Stop: 01/08/20 17:00 Last Admin: 01/07/20 17:37 Dose: 50 mls/hr Documented by: Insulin Aspart (Novolog Vial Sliding Scale -) 0 vial SQ ACHS TED; Protocol Last Admin: 01/08/20 11:34 Dose: 6 units Documented by: Insulin Detemir (Levemir Vial) 10 units SQ BID@0700,2200 [facility] Last Admin: 01/08/20 07:33 Dose: 10 units Documented by: Metoprolol Tartrate (Lopressor -) 100 mg PO BID [facility] Last Admin: 01/08/20 10:59 Dose: 100 mg Documented by: Miscellaneous (Lidoderm Patch Removal) 1 each MC DAILY@2200 [facility] Last Admin: 01/08/20 02:00 Dose: 1 each Documented by: ASSESSMENT AND PLAN: 59 YO M PMH DM [last A1C 7.4 (06/1019)], CKD, CVA (2008, right sided residual weakness, facial droop), HTN, HLD p/w a week of progressive pain on the R arm and one day of R sided shoulder pain. # rt shoulder pain - likely due to adhesive capsulitis, less likely due to cervical radiculopathy - limitation of passive and active ROM of RT shoulder due to pain - pt been using walker following his CVA, has residual Rt sided weakness that is unchanged since stroke. - avoid NSAIDs due to CKD - acetaminophen, Tramadol PRN - avoid MRI due to brain coil - outpatient PT and ortho (may need intra-articular steroids) ACS ruled out (negative troponin x2, no acute EKG changes) DM CKD CVA HTN HLD DVT prophylaxis
--- NOTE | 2020-01-08 13:14 | CON.NEP ---
Consult Consult Specialty:: Nephrology Referred by:: Medicine Reason for Consultation:: CKD - History of Present Illness Chief Complaint: Right arm pain History of Present Illness: This is a 59-year-old male with a past medical history of chronic kidney disease stage IV, hypertension, diabetes mellitus, CVA who presents with right-sided arm pain and right-sided upper chest pain and admitted for rule out ACS and noted to have serum creatinine of 3.6. Patient was seen and examined in the emergency room. He reports improvement of his RIGHT arm and chest pain but not complete resolution. He denies any shortness of breath, left-sided chest pain, dyspnea on exertion, abdominal pain, nausea, vomiting or diarrhea. He has no leg swelling. He reports good urine output without frequency/urgency or dysuria. He denies any NSAID use. He reports compliant with all his medications. He was last seen in the office by Dr. Lynda Rios in December and creatinine was 3.6 at that time. Creatinine was 3.3 in October and 2.55 and May. 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 (s/p rutptured brain anuerysm with residual left sided weakness) Cardio/Vascular: Yes: HTN, Hyperlipdemia Renal/: Yes: Renal Inusuff Endocrine: Yes: Diabetes Mellitus (on insulin) - Past Surgical History Past Surgical History: Yes: Appendectomy - Alcohol/Substance Use Hx Alcohol Use: No History of Substance Use: reports: None - Smoking History Smoking history: Never smoked Have you smoked in the past 12 months: Yes Aproximately how many cigarettes per day: 0 - Social History Usual Living Arrangement: Other (4 children, grown) Home Medications - Allergies Allergies/Adverse Reactions: Allergies Allergy/AdvReac Type Severity Reaction Status Date / Time Pork/Porcine Containing Allergy Vomiting Verified 01/07/20 11:40 Products - Home Medications Home Medications: Ambulatory Orders Clonidine HCl 0.1 mg PO BID 06/15/19 Amlodipine Besylate [Norvasc -] 10 mg PO DAILY 01/07/20 Atorvastatin Ca [Lipitor] 80 mg PO HS 01/07/20 Furosemide 40 mg PO DAILY 01/07/20 Insulin (LOG) Aspart [NovoLOG -] 0 units SQ TID 01/07/20 Insulin (Levemir) [Levemir Vial] 20 units SQ HS 01/07/20 Insulin (Levemir) [Levemir Vial] 28 units SQ DAILY 01/07/20 Metoprolol Tartrate 100 mg PO BID 01/07/20 Valsartan 160 mg PO DAILY 01/07/20 Family Medical History Family History: Unremarkable Review of Systems - Review of Systems Constitutional: reports: No Symptoms Eyes: reports: No Symptoms HENT: reports: No Symptoms Neck: reports: No Symptoms Cardiovascular: reports: Chest Pain. denies: Edema, Palpitations, Shortness of Breath Respiratory: denies: Cough, Hemoptysis, Orthopnea, SOB, SOB on Exertion Gastrointestinal: reports: No Symptoms Genitourinary: reports: No Symptoms Musculoskeletal: reports: No Symptoms Integumentary: reports: No Symptoms Neurological: reports: No Symptoms Endocrine: reports: No Symptoms Nephrology Consult - Height Height: 5 ft 5 in - Weight Weight: 95.708 kg - BMI Body Mass Index (BMI): 35.1 - Lab Results CBC,BMP: CBC, BMP 01/08/20 06:05 01/08/20 06:05 Anion Gap: Anion Gap Anion Gap 11 MMOL/L (8-16) 01/08/20 06:05 - Imaging Chest X-ray: Report Reviewed - Physical Examination Vital Signs: Vital Signs Temperature 98.0 F 01/08/20 10:48 Pulse Rate 68 01/08/20 10:48 Respiratory Rate 17 01/08/20 10:48 Blood Pressure 138/74 01/08/20 10:48 O2 Sat by Pulse Oximetry (%) 98 01/08/20 10:48 Constitutional: Yes: No Distress, Calm Eyes: Yes: Conjunctiva Clear HENT: Yes: Atraumatic, Normocephalic Neck: Yes: Supple Cardiovascular: Yes: Regular Rate and Rhythm. No: Murmur, Rub Respiratory: Yes: Regular, CTA Bilaterally. No: Rales, Rhonchi, Wheezes Gastrointestinal: Yes: Soft. No: Tenderness Renal/: No: Bladder Distention, CVA Tenderness - Left, CVA Tenderness - Right Extremities: No: Cyanosis Edema: No Neurological: Yes: Alert, Oriented Assessment/Plan 59-year-old male with a past medical history of chronic kidney disease stage IV, hypertension, diabetes mellitus, CVA who presents with right-sided arm pain and right-sided upper chest pain and admitted for rule out ACS and noted to have serum creatinine of 3.6. 1. Right-sided chest pain/atypical chest pain 2. Chronic kidney disease stage IV 3. Hypertension 4. Diabetes mellitus type 2 Renal function is stable from last 2 office visits. There are no overt electrolyte or acid based disturbance is noted and patient appears euvolemic on examination. there is no acute indication for renal replacement therapy. Given that EGFR is now less than 20 agree with the discontinuation of his DIEUDONNE/ARB. Can give gentle fluid hydration for 12 to 24 hours. Patient should resume diuretic upon discharge. Continue cardiac and neurological workup of right-sided arm/chest pain. Blood pressure goal less than 130/80. No DIEUDONNE/ARB given low EGFR. Trend renal function and electrolytes daily while inpatient. Patient can follow up with Dr. [place] on discharge. Fidencio Bradley DO
[2020-01-08 14:12] VITALS: BP 138/79; PULSE 66
--- NOTE | 2020-01-08 15:22 | DS ---
Physical Exam: SUBJECTIVE: Patient seen and examined at bedside. No acute events overnight. OBJECTIVE: Vital Signs Period Temp Pulse Resp BP Sys/Nance Pulse Ox Last 24 Hr 97.5 F-98.0 F 18-69 17-20 122-167/68-102 97-100 PHYSICAL EXAM GENERAL: Awake, alert, and fully oriented, in no acute distress. HEAD: Normal with no signs of trauma. EYES: Pupils equal, round and reactive to light, extraocular movements intact, No lid lag. EARS, NOSE, THROAT: Ears normal, nares patent, oropharynx clear without exudates. Moist mucous membranes. NECK: Normal range of motion, supple without lymphadenopathy, JVD, or masses. pain on palpation of R side LUNGS: Breath sounds equal, clear to auscultation bilaterally. No wheezes, and no crackles. No accessory muscle use. HEART: Regular rate and rhythm, normal S1 and S2 without murmur, rub or gallop. R upper chest pain on palpation ABDOMEN: obese, Soft, nontender, not distended, normoactive bowel sounds,well- healed surgical scar, hernia on R side MUSCULOSKELETAL: Normal range of motion at all joints. No bony deformities or tenderness. No CVA tenderness. UPPER EXTREMITIES: 2+ pulses, warm, well-perfused. No cyanosis. No clubbing. No peripheral edema. Full ROM b/l, only pain with movement. Pain on palpation of R shoulder. 5/5 strength LUE; 4/5 strength RUE consistent with residual weakness s/p CVA; sensation intact throughout LOWER EXTREMITIES: 2+ pulses, warm, well-perfused. No calf tenderness. No peripheral edema. 5/5 strength LLE; 4/5 strength RLE consistent with residual weakness s/p CVA; sensation intact throughout NEUROLOGICAL: Cranial nerves II-XII intact. Normal speech. PSYCHIATRIC: Cooperative. Good eye contact. Appropriate mood and affect. SKIN: Warm, dry, normal turgor, no rashes or lesions noted, normal capillary refill. LABS Laboratory Results - last 24 hr 01/07/20 01/07/20 01/07/20 14:00 18:35 19:58 WBC RBC Hgb Hct MCV MCH MCHC RDW Plt Count MPV Absolute Neuts (auto) Neutrophils % Lymphocytes % Monocytes % Eosinophils % Basophils % Nucleated RBC % Sodium Potassium Chloride Carbon Dioxide Anion Gap BUN Creatinine Est GFR (CKD-EPI)AfAm Est GFR (CKD-EPI)NonAf POC Glucometer 186 Random Glucose Hemoglobin A1c % Calcium Phosphorus Magnesium Total Bilirubin AST ALT Alkaline Phosphatase Troponin I < 0.02 Total Protein Albumin COVID-19 (LAUREN) Not detected 01/07/20 01/08/20 01/08/20 21:29 06:05 06:05 WBC 8.2 RBC 3.92 L Hgb 11.8 Hct 34.2 L MCV 87.1 MCH 30.1 MCHC 34.6 RDW 12.9 Plt Count 282 MPV 8.6 Absolute Neuts (auto) 6.4 Neutrophils % 78.3 Lymphocytes % 16.7 Monocytes % 4.2 Eosinophils % 0.3 D Basophils % 0.5 Nucleated RBC % 0 Sodium 142 Potassium 3.9 Chloride 111 H Carbon Dioxide 20 L Anion Gap 11 BUN 42.7 H Creatinine 3.5 H Est GFR (CKD-EPI)AfAm 21.20 Est GFR (CKD-EPI)NonAf 18.29 POC Glucometer 248 Random Glucose 218 H Hemoglobin A1c % Calcium 8.1 L Phosphorus 3.7 Magnesium 2.1 Total Bilirubin 0.8 AST 13 L ALT 18 Alkaline Phosphatase 108 Troponin I Total Protein 5.8 L Albumin 2.6 L COVID-19 (LAUREN) 01/08/20 01/08/20 01/08/20 06:05 07:31 11:24 WBC RBC Hgb Hct MCV MCH MCHC RDW Plt Count MPV Absolute Neuts (auto) Neutrophils % Lymphocytes % Monocytes % Eosinophils % Basophils % Nucleated RBC % Sodium Potassium Chloride Carbon Dioxide Anion Gap BUN Creatinine Est GFR (CKD-EPI)AfAm Est GFR (CKD-EPI)NonAf POC Glucometer 230 291 Random Glucose Hemoglobin A1c % 8.2 H Calcium Phosphorus Magnesium Total Bilirubin AST ALT Alkaline Phosphatase Troponin I Total Protein Albumin COVID-19 (LAUREN) HOSPITAL COURSE: Date of Admission:01/07/20 59M w/ pmhx of DM [last A1C 7.4 (06/1019)], CKD, CVA (2008, right sided residual weakness, facial droop), HTN, HLD presents with a week of progressive pain on the R arm and one day of R sided reproducible upper chest pain. Trops neg x2. EKG showed NSR, anterior infarct age undetermined. 82 bpm, QTC 436. CXR showed no acute pathology. CT c-spine showed mild moderate degenerative arthritis, no acute pathology. Pt was evaluated by neuro to assess for weakness with recommendation to obtain brain MRI, however imaging was unable to be performed due to coil placed s/p brain aneurysm repair. Pt was monitored on tele with no acute cardiac events. During his hospital stay, his chest pain improved - symptoms likely due to adhesive capsulitis of R shoulder. He was discharged home and advised to follow up with an orthopedic surgeon/PT for outpatient evaluation/MRI of his right shoulder pain. Additionally, he was advised to follow up with her PCP, neuro, networks software consultant, and rheum upon discharge. Pt stated he had an appointment with his networks software consultant tomorrow; he verbalized agreement in following up with his outside networks software consultant after discharge. Date of Discharge: 01/08/20 Minutes to complete discharge: 36 Discharge Summary Problems reviewed: Yes Reason For Visit: WEAKNESS OF BOTH UPPER EXTERMITIES,NECK PAIN,CHEST Current Active Problems Acute on chronic kidney failure (Acute) Chest pain (Acute) Neck pain (Acute) Rotator cuff syndrome of right shoulder and allied disorders (Acute) Condition: Stable - Instructions Diet, Activity, Other Instructions: You were seen in the hospital for complaints of right shoulder pain and chest pain. In the hospital, you were evaluated overnight with no acute events on the heart monitor. Additionally, your cardiac enzymes were negative and your chest pain resolved. Likely, your pain is being cause by inflammation of your shoulder joint. You will need to follow up with an orthopedic surgeon and get physical therapy as an outpatient. Medications Please take your medications as prescribed. You may take Tylenol as needed for pain. Follow Up Please follow up with an orthopedic surgeon for further evaluation of your right shoulder pain. You have been given a referral to see Dr. Arauz. Make sure to call his office and make an appointment. You may need physical therapy/steroid injections for treatment of your shoulder pain. Please follow up with your primary care physician within 1 week. Please follow up with your networks software consultant within 1 week. Please make your appointm ent for tomorrow as scheduled. Please follow up with your neurologist within 1 week. If you have persistent chest pain, shortness of breath, or other associated symptoms, please proceed to your nearest emergency room immediately. Referrals: Emmanuel Arauz DO [Staff Physician] - Bobby Lakhani MD [Primary Care Provider] - 1 Week Fidencio Bradley MD [Staff Physician] - Kieran Smith MD [Staff Physician] - Disposition: HOME - Home Medications Comprehensive Discharge Medication List: Ambulatory Orders Clonidine HCl 0.1 mg PO BID 06/15/19 Amlodipine Besylate [Norvasc -] 10 mg PO DAILY 01/07/20 Atorvastatin Ca [Lipitor] 80 mg PO HS 01/07/20 Furosemide 40 mg PO DAILY 01/07/20 Insulin (LOG) Aspart [NovoLOG -] 0 units SQ TID 01/07/20 Insulin (Levemir) [Levemir Vial] 20 units SQ HS 01/07/20 Insulin (Levemir) [Levemir Vial] 28 units SQ DAILY 01/07/20 Metoprolol Tartrate 100 mg PO BID 01/07/20 Valsartan 160 mg PO DAILY 01/07/20 This patient is new to me today: Yes Date on this admission: 01/08/20 Emergency Visit: Yes ED Registration Date: 01/07/20 Care time: The patient presented to the Emergency Department on the above date and was hospitalized for further evaluation of their emergent condition. Critical Care patient: No - Discharge Referral [facility]erred to [facility] Med P.C.: No ATTENDING PHYSICIAN STATEMENT I saw and evaluated the patient. I reviewed the resident's note and discussed the case with the resident. I agree with the resident's findings and plan as documented. SUBJECTIVE: OBJECTIVE: ASSESSMENT AND PLAN:
[2020-01-08] MEDS ORDERED: LIDOCAINE 5% TOPICAL PATCH TP ONE (16:13)
--- NOTE | 2020-01-08 17:23 | CON.CARD ---
Consult Consult Specialty:: Cardiology Referred by:: Asked by Dr. Mik Jimenez ([facility]) for us to see patient Reason for Consultation:: Cardiac evaluaton - History of Present Illness Chief Complaint: Right upper extremity discomfort History of Present Illness: Patient is a 59 year old male with underlying history of HTN, hypercholesterolemia, DM, CVA and cerebral aneurysm s/p coil and shunt placement subsequently removed due to infection and CKD presented to ED with right arm and upper right side discomfort. Pain started in the right wrist and went up to elbow and right shoulder. He denies left sided chest pain or shortness of breath. He denies fever or chills. He denies headache or lightheadedness. He d enies nausea. vomiting, diarrhea or abdominal pain. He is scheduled to see his head operator at [facility] tomorrow. 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 (s/p rutptured brain anuerysm with residual left sided weakness) Cardio/Vascular: Yes: HTN, Hyperlipdemia Renal/: Yes: Renal Inusuff Endocrine: Yes: Diabetes Mellitus (on insulin) - Past Surgical History Past Surgical History: Yes: Appendectomy - Alcohol/Substance Use Hx Alcohol Use: No History of Substance Use: reports: None - Smoking History Smoking history: Never smoked Have you smoked in the past 12 months: Yes Aproximately how many cigarettes per day: 0 - Social History Usual Living Arrangement: Other (4 children, grown) Home Medications - Allergies Allergies/Adverse Reactions: Allergies Allergy/AdvReac Type Severity Reaction Status Date / Time Pork/Porcine Containing Allergy Vomiting Verified 01/07/20 11:40 Products - Home Medications Home Medications: Ambulatory Orders Clonidine HCl 0.1 mg PO BID 06/15/19 Amlodipine Besylate [Norvasc -] 10 mg PO DAILY 01/07/20 Atorvastatin Ca [Lipitor] 80 mg PO HS 01/07/20 Furosemide 40 mg PO DAILY 01/07/20 Insulin (LOG) Aspart [NovoLOG -] 0 units SQ TID 01/07/20 Insulin (Levemir) [Levemir Vial] 20 units SQ HS 01/07/20 Insulin (Levemir) [Levemir Vial] 28 units SQ DAILY 01/07/20 Metoprolol Tartrate 100 mg PO BID 01/07/20 Valsartan 160 mg PO DAILY 01/07/20 Lidocaine 5% Patch [Lidoderm -] 1 patch TP DAILY #3 patch 01/08/20 Family Medical History Family History: Unremarkable Review of Systems - Review of Systems Constitutional: denies: Chills, Fever Cardiovascular: denies: Chest Pain, Palpitations, Shortness of Breath Respiratory: denies: Cough, Hemoptysis, Orthopnea, PND, SOB, SOB on Exertion Gastrointestinal: denies: Abdominal Pain, Constipation, Diarrhea, Melena, Nausea, Rectal Bleeding, Vomiting Genitourinary: denies: Dysuria, Hematuria Musculoskeletal: reports: Extremity Pain, Muscle Pain. denies: Back Pain Neurological: denies: Dizziness, Headache, Seizure, Syncope Vital Signs: Vital Signs Temperature 98.0 F 01/08/20 13:50 Pulse Rate 66 01/08/20 13:50 Respiratory Rate 18 01/08/20 13:50 Blood Pressure 138/79 01/08/20 13:50 O2 Sat by Pulse Oximetry (%) 98 01/08/20 13:50 - Other Data Labs, Other Data: CBC, BMP 01/08/20 06:05 01/08/20 06:05 INR, PTT INR 1.01 (0.83-1.09) 01/07/20 12:45 Troponin, BNP 01/07/20 19:58 Troponin I < 0.02 Laboratory Results - last 24 hr 01/07/20 01/08/20 01/08/20 21:29 06:05 06:05 WBC 8.2 RBC 3.92 L Hgb 11.8 Hct 34.2 L MCV 87.1 MCH 30.1 MCHC 34.6 RDW 12.9 Plt Count 282 MPV 8.6 Absolute Neuts (auto) 6.4 Neutrophils % 78.3 Lymphocytes % 16.7 Monocytes % 4.2 Eosinophils % 0.3 D Basophils % 0.5 Nucleated RBC % 0 Sodium 142 Potassium 3.9 Chloride 111 H Carbon Dioxide 20 L Anion Gap 11 BUN 42.7 H Creatinine 3.5 H Est GFR (CKD-EPI)AfAm 21.20 Est GFR (CKD-EPI)NonAf 18.29 POC Glucometer 248 Random Glucose 218 H Hemoglobin A1c % Calcium 8.1 L Phosphorus 3.7 Magnesium 2.1 Total Bilirubin 0.8 AST 13 L ALT 18 Alkaline Phosphatase 108 Troponin I Total Protein 5.8 L Albumin 2.6 L COVID-19 (LAUREN) Sinus rhythm with poor R progression Imaging - Results Chest X-ray: Report Reviewed (Unremarkable) Cat Scan: Report Reviewed (Cervical CT degerative joint disease) EKG: Report Reviewed Problem List - Problems (1) Musculoskeletal pain of extremity Code(s): M79.609 - PAIN IN UNSPECIFIED LIMB (2) Acute on chronic kidney failure Code(s): N17.9 - ACUTE KIDNEY FAILURE, UNSPECIFIED; N18.9 - CHRONIC KIDNEY DISEASE, UNSPECIFIED Qualifiers: Acute renal failure type: unspecified Chronic kidney disease stage: unspecified stage Qualified Code(s): N17.9 - Acute kidney failure, unspecified; N18.9 - Chronic kidney disease, unspecified (3) CVA (cerebrovascular accident due to intracerebral hemorrhage) Code(s): I61.9 - NONTRAUMATIC INTRACEREBRAL HEMORRHAGE, UNSPECIFIED (4) Diabetes Code(s): E11.9 - TYPE 2 DIABETES MELLITUS WITHOUT COMPLICATIONS Qualifiers: Diabetes mellitus type: type 2 Diabetes mellitus terminal supervisor insulin use: with terminal supervisor use Diabetes mellitus complication status: with kidney complications Diabetes mellitus complication detail: with nephropathy Qualified Code(s): E11.21 - Type 2 diabetes mellitus with diabetic nephropathy; Z79.4 - prison (current) use of insulin (5) Hyperlipemia Code(s): E78.5 - HYPERLIPIDEMIA, UNSPECIFIED Qualifiers: Hyperlipidemia type: pure hypercholesterolemia Qualified Code(s): E78.00 - Pure hypercholesterolemia, unspecified; E78.0 - Pure hypercholesterolemia (6) Hypertension Code(s): I10 - ESSENTIAL (PRIMARY) HYPERTENSION Assessment/Plan 1. Likely musculoskeletal pain 2. HTN 3. DM 4. CVA and history of cerebral aneurysm s/p coil 5. CKD PLAN: 1. Continue current cardiac medications: Valsartan 160 mg QD, Metoprolol Tartrate 100 mg BID, Amlodipine 10 mg QD and Clonidine 0.1 mg BID 2. Continue Furosemide 3. Continue Statin 4. He is to follow up with his head operator tomorrow 5. No additional cardiac intervention is needed at this time 6. Monitor renal function Previous record was reviewed Seng Agustin MD
--- NOTE | 2020-01-08 17:30 | EKG ---
Test Reason : Blood Pressure : / mmHG Vent. Rate : 082 BPM Atrial Rate : 082 BPM P-R Int : 166 ms QRS Dur : 084 ms QT Int : 374 ms P-R-T Axes : 019 -03 000 degrees QTc Int : 436 ms NORMAL SINUS RHYTHM POOR R WAVE PROGRESSION ABNORMAL ECG WHEN COMPARED WITH ECG OF 17-JUN-2019 10:45, R PROGRESSION NOTED Confirmed by AMIE BRITTON MD ([id number]) on 01/08/2020 5:29:46 PM Referred By: Confirmed By:AMIE BRITTON MD
[2020-01-08] MEDS ORDERED: LIDOCAINE PATCH REMOVAL MC SCH (22:00)
== END 2020-01-08 16:35 | disposition home or self-care (01) ==
LOC: JER 11:32 → JERBED 13:38 → J4W 01-08 13:40
PROVIDERS: ADMIT Internal Medicine; ATTEND Student in an Organized Health Care Education/Training Program
PROC: 3E033NZ Introduction of Analgesics, Hypnotics, Sedatives into Peripheral Vein, Percutaneous Approach (ICD-10-PCS; principal; 2020-01-07)
PROC: 3E013VG Introduction of Insulin into Subcutaneous Tissue, Percutaneous Approach (ICD-10-PCS; 2020-01-07)
PROC: 3E033GC Introduction of Other Therapeutic Substance into Peripheral Vein, Percutaneous Approach (ICD-10-PCS; 2020-01-07)
PROC: 3E0337Z Introduction of Electrolytic and Water Balance Substance into Peripheral Vein, Percutaneous Approach (ICD-10-PCS; 2020-01-07)
DX: I13.10 Hypertensive heart and chronic kidney disease without heart failure, with stage 1 through stage 4 chronic kidney disease, or unspecified chronic kidney disease (principal); I60.6 Nontraumatic subarachnoid hemorrhage from other intracranial arteries; M54.2 Cervicalgia; R07.89 Other chest pain; M75.101 Unspecified rotator cuff tear or rupture of right shoulder, not specified as traumatic; R07.2 Precordial pain; I69.398 Other sequelae of cerebral infarction; Z79.4 Long term (current) use of insulin; Z95.828 Presence of other vascular implants and grafts; G81.94 Hemiplegia, unspecified affecting left nondominant side; E78.5 Hyperlipidemia, unspecified; M10.9 Gout, unspecified; G89.29 Other chronic pain; R60.0 Localized edema; Z87.891 Personal history of nicotine dependence; Z91.018 Allergy to other foods
CPT/HCPCS: 36415; 71045-TC-FY; 72125-TC; 80053; 81003; 82550; 82553; 82962; 83036; 83735; 84100; 84484; 84550; 85025; 85610; 85730; 93005; 93010; 99285-25; G0378; J0131; J0735; U0003